=== PATIENT | male | born 1935 | race Caucasian/White ===

== ENCOUNTER 2018-03-12 13:43 | Observation (INO) ==
--- NOTE | 2018-03-12 14:00 | Emergency Department Note ---
Disposition Clinical Impression: New onset a-fib, Elevated TSH Disposition: Admitted As Inpatient Condition: Good Referrals: Chen Costello MD [Primary Care Provider] - Time of Disposition: 15:06 General Adult HPI - General Stated complaint: nausea Time Seen by Provider: 03/12/18 13:45 Source: patient, family (), EMS Mode of arrival: EMS Limitations: physical limitation Nursing Notes Reviewed: Yes Vital Signs Reviewed: Yes - History of Present Illness HPI Narrative: 82-year-old male history of dementia on Aricept presents emergency department via EMS for nausea. History was obtained through EMS and . Patient reportedly has been complaining of some dizziness blurred vision and headache and was seen and evaluated by primary care physician over the past week and had outpatient labs including MRI imaging of the brain performed today as an outpatient. This was performed approximately 2 hours prior to arrival. With the patient returned home he became very nauseated. He has been vomiting. He presents for that complaint. EMS performed EKG which showed that he is and atrial fibrillation. denies a history of cardiac ischemic disease, regular heart rhythm such as atrial fibrillation or congestive heart failure. Patient denies any chest pain or palpitations. Denies any dyspnea. At this time it is presumed to be new onset atrial fibrillation. denies any recent illnesses, cough congestion or diarrhea. He does not drink alcohol. Review of his laboratory results performed earlier today his TSH is elevated at 11. The MRI of his brain did not reveal any acute infarct. - Related Data Home Medications Medication Instructions Recorded Confirmed Donepezil HCl [Aricept] 5 mg PO HS 03/12/18 03/12/18 Allergies Allergy/AdvReac Type Severity Reaction Status Date / Time No Known Allergies Allergy Verified 03/12/18 14:06 All systems ED: reviewed and negative except as stated. Review of Systems: As Per HPI Constitutional: Denies: fever, chills ENT ED: Denies: congestion Cardiovascular: Denies: chest pain, palpitations Respiratory: Denies: cough, dyspnea Gastrointestinal: Reports: nausea, vomiting. Denies: abdominal pain, diarrhea Musculoskeletal: Denies: back pain Integumentary: Denies: rash, abrasion Neurological: Reports: headache. Denies: weakness, numbness Past Medical History - Past Medical History Attestation: Yes The following information was validated with the patient. Source: patient Medical history: Reports: no medical history Psychiatric history: Reports: no psych history - Social History Smoking Status: Never smoker Smokeless Tobacco Status: No Alcohol use: Reports: none Drug use: Reports: none Physical Exam - General Limitations: physical limitation (Dementia) General appearance: alert, other (Actively nauseated and vomiting) - Head Head exam: atraumatic, normocephalic, normal inspection - Eye Eye exam: Present: normal appearance, PERRL, EOMI - ENT ENT exam: normal exam, normal oropharynx, mucous membranes moist - Neck Neck exam: Present: normal inspection, full ROM, trachea midline - Chest Chest inspection: Present: normal inspection, symmetric chest wall rise - Respiratory Respiratory exam: Present: normal lung sounds bilaterally. Absent: respiratory distress, wheezes - Cardiovascular Cardiovascular exam: Present: tachycardia, irregular rhythm, normal heart sounds - Expanded Cardiovascular Exam Peripheral pulses: 2+: radial (R), radial (L) - Abdominal Exam Abdominal exam: Present: soft, Non-Tender, normal bowel sounds. Absent: tenderness, distention, guarding, rebound, rigidity - Extremities Exam Extremities exam: Present: normal inspection, full ROM, normal capillary refill. Absent: tenderness, pedal edema - Psychiatric Psychiatric exam: Present: normal affect, normal mood - Skin Skin exam: Present: warm, dry, intact, normal color. Absent: rash, cyanosis, diaphoresis Course Course Narrative: Patient presents nauseated and found to be of atrial fibrillation with rapid ventricular response. Currently his heart rate is 102. No recent illness or infection. He had outpatient labs that shows his TSH is elevated. I suspect he may have had underlying atrial fibrillation without knowing. Will add additional labs including coagulation in a troponin. Review of his electrolytes from earlier are within normal limits. Patient will require admission for further evaluation and workup for his new atrial fibrillation. - Reevaluation(s) Reevaluation #1: Troponin less than 0.03. INR is one. Patient will be admitted for atrial fibrillation. He has received Zofran which has relieved his nausea. IV fluids. His heart rate is now 70-80. - Consultations Consultation #1: Spoke with on-call hospitalist samra Puga to admit for new onset atrial fibrillation. No further orders at this time Time: 15:06 Vital Signs O2 Sat by Pulse Oximetry 91 03/12/18 14:08 Temperature 97.9 F 03/12/18 14:10 Pulse Rate 102 03/12/18 14:10 Respiratory Rate 20 03/12/18 14:10 Blood Pressure 162/96 03/12/18 14:10 O2 Sat by Pulse Oximetry 91 03/12/18 14:10 Oxygen Delivery Oxygen Delivery Room Air Medical Decision Making - MDM Narrative Medical decision making narrative: Patient was discussed with my attending physician who agrees with ED management and final disposition. They independently evaluated the patient. Please refer to their attestation to this encounter for additional information. This note was generated by [employer] voice recognition software and as a result grammatical or spelling errors may occur using this program. - Medical Records Medical records reviewed: Yes I reviewed the patient's medical records. - Lab Data Lab results reviewed: Yes I reviewed the patient's lab results. Lab results narrative: Laboratory Tests 03/12/18 03/12/18 09:58 09:58 WBC 5.1 Hgb 16.3 Sodium 136 Potassium 4.1 Chloride 99 Carbon Dioxide 31 H BUN 8 Creatinine 0.95 Est GFR ( Amer) > 60 Glucose 92 Total Bilirubin 0.7 AST 15 ALT 12 Alkaline Phosphatase 61 TSH 11.869 H Lab Results 03/12/18 03/12/18 Range/Units 14:09 14:09 PT 10.8 (9.4-12.1) Seconds INR 1.0 APTT 27.2 (26.0-36.0) Seconds Troponin I < 0.03 (< 0.04) ng/mL - Radiology Data Radiology results reviewed: Yes I reviewed the patient's radiology results. EXAMINATION: MRI OF THE BRAIN WITHOUT CONTRAST 03/12/2018 9:51 am TECHNIQUE: Multiplanar multisequence MRI of the brain was performed without the administration of intravenous contrast. COMPARISON: None. HISTORY: ORDERING SYSTEM PROVIDED HISTORY: DIZZINESS Dizziness, off balance, for a few months. FINDINGS: INTRACRANIAL STRUCTURES/VENTRICLES: There is no acute infarct. There is mild amount of nonspecific T2 hyperintense white matter lesions bilaterally, which are most often attributed to chronic small vessel ischemic white matter disease. Mild prominence of ventricles and sulci is compatible with cerebral volume loss. No abnormal susceptibility artifact is identified. No midline shift. No significant mass effect. Ventricles are dilated slightly out of proportion to the sulcal volume loss. ORBITS: The visualized portion of the orbits demonstrate no acute abnormality. SINUSES: Minimal bilateral mastoid effusions. There are small retention cysts within bilateral maxillary sinuses. BONES/SOFT TISSUES: There is a degenerative pannus formation at C1-C2 articulation. The marrow signal appears grossly unremarkable. MR/MR head/brain wo con IMPRESSION: No acute infarct, intracranial hemorrhage, or significant mass effect. Mild dilatation of the ventricles is slightly out of proportion to the sulcal volume loss. This may be secondary to predominantly central volume loss versus normal pressure hydrocephalus. 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 Minimal bilateral mastoid effusions are nonspecific. D/ / 03/12/2018 11:14:39 Christiano Reyes MD / [facility] Interpreting Provider: Christiano Reyes MD - EKG Data EKG #1 EKG attestation: Yes I reviewed and interpreted this EKG. EKG results narrative: EKG performed 1357 atrial fibrillation 102 beats per minute, atrial fibrillation , normal axis, good R wave progression, no ST elevation or depression, intervals within normal limits. There is no old EKG available for comparison at this time. Presumed new onset atrial fibrillation.
[2018-03-12] MEDS ORDERED: Ondansetron 4 MG/2 ML VIAL IVP ONE (14:05)
[2018-03-12] MEDS ORDERED: 0.9 % Sodium Chloride 1,000 ML IVC ONE (14:20)
[2018-03-12 14:32] LABS: Prothrombin Time 10.8 Seconds (9.4-12.1)
[2018-03-12 14:34] LABS: Activated Partial Thrombo Time 27.2 Seconds (26.0-36.0)
--- NOTE | 2018-03-12 14:34 | Emergency Department Note ---
Disposition Clinical Impression: New onset a-fib Disposition: Admitted As Inpatient Referrals: Chen Costello MD [Primary Care Provider] - General Adult HPI - General Chief complaint: ED Arrhythmia/Palpitations Stated complaint: nausea/new onset afib Time Seen by Provider: 03/12/18 13:45 Source: patient, family (), EMS Mode of arrival: EMS Limitations: physical limitation (Dementia) - History of Present Illness Pain Scale: 0 - Related Data Home Medications Medication Instructions Recorded Confirmed Donepezil HCl [Aricept] 5 mg PO HS 03/12/18 03/12/18 Allergies Allergy/AdvReac Type Severity Reaction Status Date / Time No Known Allergies Allergy Verified 03/12/18 14:06 Constitutional: Denies: fever, chills ENT ED: Denies: congestion Cardiovascular: Denies: chest pain, palpitations Respiratory: Denies: cough, dyspnea Gastrointestinal: Reports: nausea, vomiting. Denies: abdominal pain, diarrhea Musculoskeletal: Denies: back pain Integumentary: Denies: rash, abrasion Neurological: Reports: headache. Denies: weakness, numbness Past Medical History - Past Medical History Medical history: Reports: no medical history Psychiatric history: Reports: no psych history - Social History Smoking Status: Never smoker Smokeless Tobacco Status: No Alcohol use: Reports: none Drug use: Reports: none Physical Exam - General Limitations: physical limitation (Dementia) General appearance: alert, other (Actively nauseated and vomiting) Course Vital Signs O2 Sat by Pulse Oximetry 91 03/12/18 14:08 Temperature 97.9 F 03/12/18 14:10 Pulse Rate 102 03/12/18 14:10 Respiratory Rate 20 03/12/18 14:10 Blood Pressure 162/96 03/12/18 14:10 O2 Sat by Pulse Oximetry 91 03/12/18 14:10 Oxygen Delivery Oxygen Delivery Room Air Attestation Statement - Attestation Attestation: I examined this patient and my medical decision-making was reviewed with the Resident Physician. I agree with the documented findings, disposition and treatment plan as described except to the extent set forth below. 82 year old male with history of dementia and has been experincing icnreased dementia sypmtoms with blurriness to hsi vision most recently had labs and MRi of the brain done to day for evlaution per his PCP. MRI shows mild diltation possible normal pressure hydocephalus although he is at baseline per family. PAtient went home after the MRI and started to feel extreme nausea and when EMS arrived he was fond to be in AFIB rvr with rate of 114. Now at bedside he is 95 , but still in afib. Juwan has a no previous history of afib. We will not treat with anti-arrhtyhmics at this time as it is unsure how long he has been in afib in addition to his rate is now controlled at 95. WE will admit to medicine for new onset afib
[2018-03-12 14:48] LABS: Troponin I < 0.03 ng/mL (< 0.04)
[2018-03-12] MEDS ORDERED: *HR* Metoprolol 5 MG/5 ML VIAL IVP ONE (15:04)
[2018-03-12] MEDS ORDERED: Naloxone 0.4 MG/ML INJ IVP PRN (15:05)
[2018-03-12 15:19] LABS: Bilirubin,Urine Negative (Negative); Blood,Urine Negative (Negative); Clarity,Urine Clear (Clear); Color,Urine Yellow (Yellow); Glucose,Urine (UA) Normal (Normal); Ketones,Urine Trace mg/dL (Negative); Leukocyte Esterase,Urine Negative (Negative); Nitrite,Urine Negative (Negative); PH,Urine 7.5 pH Units (5.0-8.0); Protein,Urine Negative (Neg-Trace); Specific Gravity,Urine 1.014 (1.010-1.025); Urobilinogen,Urine Normal (Normal)
--- NOTE | 2018-03-12 16:02 | Internal Med History&Physical ---
Date of Encounter: 03/12/18 Time of Encounter: 16:02 Internal Medicine - H&P: HPI Chief complaint: Nausea and vomiting, dizziness Admitted From: Home Plans for Post Hospital Care: Home History of present illness: Mr. Berman is a 82 year old male with medical history significant for dementia. The patient was seen and evaluated with his spouse and son at the bedside. His primary care physician sent him to the hospital for a routine MRI and abdominal following worsening of his baseline dementia. On getting home after his blood draws, the patient complained of nausea, and dizziness. Family brought him by squad found him to be in A. fib with ventricular rate in the 160s. In the ER here, he was found with A. fib heart rate [address] segment changes. And his symptoms had resolved at the time of presentation. The patient's family denies any prior history of heart disease, he denies chest pain, he still continues to complain of dizziness, but he has no had any meal today due to fasting for his blood work. He denies diaphoresis, he denies shortness of breath, he denies leg edema. He is hemodynamically stable at the time of review. He denies nausea or vomiting, no abdominal pain, no change in bowel habits. He denies genitourinary symptoms. The patient converted to sinus rhythm with IV fluid hydration only. Workup requested by his physician was unremarkable, urine analysis is pending, his TSH is elevated at 11.8. His brain MRI showed ventricular dilatation likely due to age, the patient has no signs or symptoms of normal pressure hydrocephalus. The patient is full code and the family is interested in anticoagulation for his A. fib. We will place the patient on observation He is full code. Past Med Surg Social Fam HX - Past Medical History Medical history: no medical history Psychiatric history: no psych history - Social History Smoking Status: Never smoker Smokeless Tobacco Status: No Alcohol use: none Drug use: none Internal Medicine - H&P: Meds Donepezil HCl [Aricept] 5 mg PO HS 03/12/18 [History] 3 Allergy/AdvReac Type Severity Reaction Status Date / Time No Known Allergies Allergy Verified 03/12/18 14:06 All Systems PM: A 10-system review of systems was performed and is negative for pertinent findings except as documented above in the HPI. - Constitutional Constitutional: no chills, no fever(s), no night sweats - EENT Eyes: no change in vision, no discharge, no pain, no photophobia Ears: no ear discharge, no ear pain, no tinnitus Nose, mouth and throat: no dysphagia, no nasal discharge, no neck pain, no sore throat - Cardiovascular Cardiovascular ROS IM: as per HPI, lightheadedness, no chest pain, no diaphoresis, no dyspnea, no palpitations, no syncope - Respiratory Respiratory: no cough, no dyspnea, no wheezing, no excessive phlegm production - Gastrointestinal Gastrointestinal: nausea, no abdominal pain, no diarrhea, no hematemesis, no hematochezia, no melena, no vomiting - Musculoskeletal Musculoskeletal ROS IM: no numbness, no tingling - Integumentary Integumentary IM: no rash, no unusual bruising - Neurological Neurological ROS: no confusion, no convulsions, no focal weakness, no numbness, no tingling, no tremor(s) - Hematologic/Lymphatic Hematologic/Lymphatic: no easy bruising - Constitutional Vitals: Temp Pulse Resp BP Pulse Ox 97.9 F 83 20 142/83 95 03/12/18 14:10 03/12/18 15:30 03/12/18 15:30 03/12/18 15:30 03/12/18 15:30 Exam: see detailed exam below - Head Head exam: Present: atraumatic, normocephalic - Eye Eye exam: Present: PERRL, conjuntiva pink, sclera anicteric Pupils: Present: PERRL - Neck Neck exam general surgery: Present: supple, trachea midline. Absent: lymphadenopathy - Respiratory Respiratory exam: Present: CTAB. Absent: accessory muscle use, rales, rhonchi, wheezes - Cardiovascular Cardiovascular exam: Present: RRR, +S1, +S2. Absent: diastolic murmur, gallop, rubs, systolic murmur - GI/Abdominal GI/Abdominal exam: Present: normal bowel sounds, soft, no peritoneal signs. Absent: distended, tenderness - Extremities Exam Extremities exam: Present: warm, radial pulses palpable and symmetrical. Absent : calf tenderness, cyanotic, pedal edema - Neurological Exam Neurological exam: Present: CN II-XII intact, oriented X3, no focal deficits. Absent: pronater drift, facial droop, speech deficit - Skin Skin exam: Present: dry, intact Internal Med - H&P Results - Labs CBC & Chem 7: 03/12/18 14:09 Labs: BMP 03/12/18 14:09 Sodium Cancelled Potassium Cancelled Chloride Cancelled Carbon Dioxide Cancelled BUN Cancelled Creatinine Cancelled Glucose Cancelled Calcium Cancelled Cardiac Enzymes 03/12/18 Range/Units 14:09 Troponin I < 0.03 (< 0.04) ng/mL Urine 03/12/18 Range/Units 15:11 Urine Color Yellow (Yellow) Urine Clarity Clear (Clear) Urine pH 7.5 (5.0-8.0) pH Units Ur Specific [place] 1.014 (1.010-1.025) Urine Protein Negative (Neg-Trace) mg/dL Urine Glucose (UA) Normal (Normal) mg/dL - Impressions ITS Impressions Chest X-Ray 03/12/18 13:55 IMPRESSION: Elevated left hemidiaphragm. Cardiomegaly. Otherwise, no acute abnormalities seen in the chest D/ / Basim Doherty MD / Basim Doheryt MD Interpreting Provider: Basim Doherty MD - Assessment and plan (1) New onset a-fib Current Visit: Yes Status: Acute Assessment and plan: Paroxysmal, currently asymptomatic and hemodynamically stable. [place] started on metoprolol 12.5 mg by mouth twice a day [id number] score is 2 for age greater than 75 years old Family at least on anticoagulation, we will start on xarelto today, hospitalist to confirm pricing prior to discharge Check Mag Other electrolytes WNL ECHO ordered (2) Dementia Current Visit: Yes Status: Chronic Assessment and plan: Continue home medication Qualifiers: Dementia type: Alzheimer's disease Alzheimer's disease onset: unspecified onset Dementia behavioral disturbance: without behavioral disturbance Qualified Code(s): G30.9 - Alzheimer's disease, unspecified; F02.80 - Dementia in other diseases classified elsewhere without behavioral disturbance (3) Elevated TSH Current Visit: Yes Status: Acute Assessment and plan: TSH level in the setting of dementia and new onset A. fib. Patient has an appointment with his PCP this coming week, we will defer resumption of Synthroid to PCP. - Time Spent With Patient Total time spent is greater than 50% in coordination of care (as documented) at patient's floor/unit and/or counseling patient:
[2018-03-12 16:05] LABS: Magnesium 2.1 mg/dL (1.6-2.6)
[2018-03-12] MEDS: *HR* Rivaroxaban 10 MG TABLET PO SCH (18:02)
[2018-03-13 07:38] LABS: Basophils % 0.3 %; Eosinophils # 0.1 K/mcL (0.0-0.6); Eosinophils % 1.2 %; Hematocrit 47.2 % (37.5-50.1); Hemoglobin 15.8 g/dL (12.9-16.9); Immature Granulocytes % 0.3 % (0-4); Lymphocytes # 1.3 K/mcL (0.6-4.6); Mean Corpuscular HGB Conc 33.5 g/dL (31.6-35.5); Mean Corpuscular Volume 92.5 fL (83.0-100.0); Monocytes # 0.5 K/mcL (0.0-1.3); Monocytes % 8.2 %; Neutrophils # 3.9 K/mcL (1.6-8.9); Platelet Count 144 K/mcL (140-400); Red Cell Distribution Width 13.1 % (11.5-14.5)
[2018-03-13 07:47] LABS: BUN/Creatinine Ratio 11 (6-26); Blood Urea Nitrogen 10 mg/dL (8-23); Calcium 9.2 mg/dL (8.6-10.3); Carbon Dioxide 28 mEq/L (23-29); Chloride 101 mEq/L (98-107); Glucose 111 mg/dL (70-105); Magnesium 2.2 mg/dL (1.6-2.6); Osmolality,Calculated 280 (280-300); Potassium 4.1 mEq/L (3.5-5.1); Sodium 135 mEq/L (136-145); eGFR For Non-African Americans > 60 (> 60)
[2018-03-13 10:47] VITALS: BP 135/87
--- NOTE | 2018-03-13 13:46 | Discharge Summary ---
- NOTES TO OUTPATIENT PROVIDER Notes to Outpatient Provider: Paroxysmal a.fib, started on low dose beta veena and Xarelto Date of Encounter: 03/13/18 Time of Encounter: 13:43 - Discharge Diagnosis (1) New onset a-fib Priority: Primary Status: Acute (2) Elevated TSH Priority: Primary Status: Chronic (3) Dementia Priority: Secondary Status: Chronic Qualifiers: Dementia type: Alzheimer's disease Alzheimer's disease onset: late-onset Dementia behavioral disturbance: with behavioral disturbance Qualified Code(s) : G30.1 - Alzheimer's disease with late onset; F02.81 - Dementia in other diseases classified elsewhere with behavioral disturbance Hospital course: Mr. Berman is a 82 year old male with no significant medical history except Alzheimer's dementia, was brought in by family due to nausea and dizziness. He was noted to have atrial fibrillation with RVR in the ER that converted to sinus rhythm with IV hydration. He was since started on low dose beta veena and anticoagulation with Xarelto after discussing risks and benefits with family by admitting physician due to [id number] score of 2. TSH ordered by PCP showed mild elevation at 8, to f/up as outpatient for further thyroid panel testing and Levothyroxine if symptomatic. Patient remained in sinus rhythm since admission with good rate control. Echocardiogram showed preserved EF, mild diastolic dysfunction. Patient was noted to become more delirious and disoriented towards afternoon, and began to become agitated and threatening to leave and go home. He is medically stable; I have discussed with family along with RN, regarding Xarelto parker check and they are agreeable to take patient home. Discharge discussed with: patient, family, nurse - Time Spent with Patient Total time spent providing and/or coordinating discharge services: Greater than 30 minutes (40 min) - Discharge Medications Prescriptions: Metoprolol [Lopressor] 12.5 mg PO BID #30 tablet Rivaroxaban [Xarelto] 20 mg PO 1700 #60 tablet Home Medications: Donepezil HCl [Aricept] 5 mg PO HS 03/12/18 [History] Metoprolol [Lopressor] 12.5 mg PO BID #30 tablet 03/13/18 [Rx] Rivaroxaban [Xarelto] 20 mg PO 1700 #60 tablet 03/13/18 [Rx] Allergies/Adverse Reactions: 3 Allergy/AdvReac Type Severity Reaction Status Date / Time No Known Allergies Allergy Verified 03/12/18 14:06 Date of admission: 03/12/18 16:13 Primary care physician: Chen Costello MD Discharging clinician: Yolanda Chavarria Anticipated date of discharge: 03/13/18 - Constitutional Vitals: Temp Pulse Resp BP Pulse Ox 97.8 F 72 18 135/87 97 03/13/18 10:46 03/13/18 10:46 03/13/18 10:46 03/13/18 10:46 03/13/18 10:46 General appearance: Present: A&O X 1. Absent: answers questions appropriately Exam: . - Cardiovascular Cardiovascular exam: Present: RRR, +S1, +S2. Absent: diastolic murmur, gallop, rubs, systolic murmur - Patient Status Disposition: Home, Self-Care Condition: Fair Functional capacity at discharge: independent ambulation Overall status at discharge: patient is progressing back to baseline - Discharge Instructions Instructions: Atrial Fibrillation (DC) Follow Up With: Chen Costello MD [Primary Care Provider] - Forms: ED Satisfaction Letter Additional Instructions: F/up with PCP in 1-2 weeks - Diet and Activity Activity: resume usual activities as tolerated Diet: advance to your usual diet, regular diet
[2018-03-13] MEDS: *HR* Rivaroxaban 10 MG TABLET PO SCH (14:32)
--- NOTE | 2018-03-16 16:47 | Electrocardiograph Report ---
[place] [id number] Test Date: 2018-03-12 Pat Name: Nikhil Berman Department: [id number] Room: 2NE16 Gender: M Packer Fuser: : [id number] Requested By: Chente Apple Order Number: [id number] Reading MD: Mendel Woo Measurements Intervals [place] Rate: 102 P: NH: QRS: 28 QRSD: 90 T: -32 QT: 364 QTc: 475 Interpretive Statements Atrial fibrillation Ventricular premature complex Borderline T abnormalities, inferior leads Electronically Signed On 03-16-2018 16:45:53 EDT by Mendel Woo
== END 2018-03-13 14:36 | disposition home or self-care (01) ==
LOC: 2NENU 13:43 → EMEROOARM 13:43 → SUATTDRO 16:13 → 2NENU 17:03
PROVIDERS: ADMIT Internal Medicine; ATTEND Internal Medicine

== ENCOUNTER 2018-06-01 14:24 | Observation (INO) ==
--- NOTE | 2018-06-01 14:35 | Emergency Department Note ---
Disposition Clinical Impression: Near syncope, Slurred speech, TIA (transient ischemic attack) Dementia Qualifiers: Dementia type: unspecified type Dementia behavioral disturbance: without behavioral disturbance Qualified Code(s): F03.90 - Unspecified dementia without behavioral disturbance Disposition: Admitted As Inpatient Condition: Fair General Adult HPI - General Chief complaint: ED Neuro Symptoms/Deficit Stated complaint: possible stroke/ ill Time Seen by Provider: 06/01/18 14:28 Source: patient, EMS Nursing Notes Reviewed: Yes Vital Signs Reviewed: Yes - History of Present Illness HPI Narrative: 82-year-old male presents emergency department with concern for having a presyncopal episode. Patient was using the bathroom, when his noticed that he was having slurring of his speech and almost passed out. Patient did not hit his head. He did not have any chest pain or palpitations at this incident. Patient was brought in by EMS. Stated that he had no neurologic symptoms at the time that they saw him and did not develop any on the squad right over. Patient was recently diagnosed with atrial fibrillation and had a recent hospitaliza tion. He was taking blood thinning medications, but reported that he weakness with them. He is currently only taken 325 mg aspirin daily for his atrial fibrillation. Pain Scale: 0 - Related Data Home Medications Medication Instructions Recorded Confirmed Donepezil HCl [Aricept] 5 mg PO HS 03/12/18 03/12/18 Levothyroxine [Synthroid] 25 mcg PO 0630 03/14/18 03/14/18 Previous Rx's Medication Instructions Recorded Metoprolol [Lopressor] 12.5 mg PO BID #30 tablet 03/13/18 Warfarin [Coumadin] 2.5 mg PO 1800 #30 tablet 03/14/18 Allergies Allergy/AdvReac Type Severity Reaction Status Date / Time No Known Allergies Allergy Verified 03/12/18 14:06 All systems ED: reviewed and negative except as stated. Review of Systems: As Per HPI Constitutional: Denies: fever Cardiovascular: Reports: other (Near syncope). Denies: chest pain, palpitations Respiratory: Denies: cough, dyspnea Gastrointestinal: Denies: abdominal pain, nausea, vomiting Genitourinary: Denies: urgency, dysuria, frequency Musculoskeletal: Denies: back pain, neck pain Endocrine: Denies: fatigue Hematological/Lymphatic: Denies: easy bleeding Past Medical History - Past Medical History Medical history: Reports: dementia Surgical history: Reports: no surgical history Psychiatric history: Reports: no psych history - Social History Smoking Status: Never smoker Smokeless Tobacco Status: No Alcohol use: Reports: none Drug use: Reports: none Physical Exam - General Limitations: no limitations General appearance: alert - Head Head exam: normocephalic - Eye Eye exam: Present: EOMI - ENT ENT exam: mucous membranes moist - Neck Neck exam: Present: trachea midline - Chest Chest inspection: Present: symmetric chest wall rise - Respiratory Respiratory exam: Present: normal lung sounds bilaterally. Absent: respiratory distress, accessory muscle use - Cardiovascular Cardiovascular exam: Present: regular rate, normal rhythm, normal heart sounds - Abdominal Exam Abdominal exam: Present: soft, Non-Tender. Absent: distention, guarding, rebound, rigidity - Extremities Exam Extremities exam: Present: normal capillary refill - Back Exam Back exam: Present: full ROM - Neurological Exam Neurological exam: Present: alert, oriented X3, CN II-XII intact, other (NIH of 0, GCS 15, no focal neurologic deficits) - Psychiatric Psychiatric exam: Present: normal affect, normal mood - Skin Skin exam: Present: warm, dry, intact, normal color. Absent: rash Course Vital Signs Temperature 98.2 F 06/01/18 14:27 Pulse Rate 62 06/01/18 14:27 Respiratory Rate 16 06/01/18 14:27 Blood Pressure 166/81 06/01/18 14:27 O2 Sat by Pulse Oximetry 95 06/01/18 14:27 Temperature 98.2 F 06/01/18 14:34 Pulse Rate 89 06/01/18 18:11 Respiratory Rate 16 06/01/18 18:11 Blood Pressure 142/79 06/01/18 18:11 O2 Sat by Pulse Oximetry 96 06/01/18 18:11 Oxygen Delivery Oxygen Delivery Room Air Medical Decision Making - [facility] Narrative Medical decision making narrative: 82-year-old male presents emergency Department concern for a near syncopal episode today with history recently diagnosed atrophic relation with RVR and not currently being on blood thinning medications. Patient had NIH of 0 at initial presentation. He had a GCS of 15. We did obtain CT scan of the head as well as CTA of the head and neck and there is no acute abnormality per radiology. Was concern for the possibility of ventriculomegaly, but patient had no clinical signs of normal pressure hydrocephalus. Chest x-ray, on the other hand, revealed cardiomegaly and vascular congestion per radiology. Troponin was negative. EKG did not reveal any ischemic ST changes. Also, there was no evidence of deadly causes of syncope. Patient was in sinus rhythm. Patient was offered admission due to high risk for adverse events including but not limiting deadly arrhythmia, stroke. He agreed to be admitted. Patient was admitted to Dr. Mccoy. He was stable and not in acute distress at that time. Patient had already received 325 mg aspirin prior to arrival as he takes this daily. Chest X-Ray 06/01/18 14:30 IMPRESSION: 1. Cardiomegaly with mild vascular congestion. D/ / Bert Rapp MD / Bert Rapp MD Interpreting Provider: Bert Rapp MD Head CT 06/01/18 14:31 IMPRESSION: 1. No acute intracranial abnormality. 2. Ventriculomegaly, likely related to involutional change, however, normal pressure hydrocephalus cannot be excluded. D/ / 06/01/2018 15:07:36 Beny Casper MD / unruly Interpreting Provider: Beny Casper MD Head CTA 06/01/18 16:03 IMPRESSION: No intracranial arterial abnormality. D/ / Chente Fraire / Chente Fraire Interpreting Provider: Chente Fraire Neck CTA 06/01/18 16:03 IMPRESSION: 1.Unremarkable CTA of the neck. D/ / Bert Rapp MD / Bert Rapp MD Interpreting Provider: Bert Rapp MD Vital Signs Temperature 98.2 F 06/01/18 14:27 Pulse Rate 62 06/01/18 14:27 Respiratory Rate 16 06/01/18 14:27 Blood Pressure 166/81 06/01/18 14:27 O2 Sat by Pulse Oximetry 95 06/01/18 14:27 Temperature 98.0 F 06/01/18 20:12 Pulse Rate 83 06/01/18 20:12 Respiratory Rate 14 06/01/18 20:12 Blood Pressure 144/76 06/01/18 20:12 O2 Sat by Pulse Oximetry 94 06/01/18 20:12 Oxygen Delivery Oxygen Delivery Room Air - Lab Data Result diagrams: 06/01/18 14:36 06/01/18 14:36 Lab Results 06/01/18 06/01/18 06/01/18 Range/Units 14:26 14:36 14:36 WBC 5.8 (4.3-11.1) K/mcL RBC 4.74 (4.19-5.50) M/mcL Hgb 14.6 (12.9-16.9) g/dL Hct 44.3 (37.5-50.1) % MCV 93.5 (83.0-100.0) fL MCH 30.8 (28.0-33.3) pg MCHC 33.0 (31.6-35.5) g/dL RDW 12.8 (11.5-14.5) % Plt Count 149 (140-400) K/mcL MPV 9.5 (9.4-12.4) fL Immature Gran % 0.7 (0-4) % Seg Neutrophils % 67.4 % Lymphocytes % 21.1 % Monocytes % 8.2 % Eosinophils % 1.9 % Basophils % 0.7 % Neutrophils # 3.9 (1.6-8.9) K/mcL Lymphocytes # 1.2 (0.6-4.6) K/mcL Monocytes # 0.5 (0.0-1.3) K/mcL Eosinophils # 0.1 (0.0-0.6) K/mcL Basophils # 0.0 (0.0-0.2) K/mcL PT 11.0 (9.4-12.1) Seconds INR 1.0 APTT 23.7 L (26.0-36.0) Seconds Sodium (136-145) mEq/L Potassium (3.5-5.1) mEq/L Chloride (98-107) mEq/L Carbon Dioxide (23-29) mEq/L BUN (8-23) mg/dL Creatinine (0.70-1.30) mg/dL Est GFR ( Amer) (> 60) Est GFR (Non-Af Amer) (> 60) BUN/Creatinine Ratio (6-26) Glucose (70-105) mg/dL POC Glucose 97 (70-99) mg/dL Calculated Osmolality (280-300) Calcium (8.6-10.3) mg/dL Total Bilirubin (0.3-1.0) mg/dL Direct Bilirubin (0.0-0.2) mg/dL Indirect Bilirubin (0.0-1.2) mg/dL AST (13-39) Units/L ALT (7-52) Units/L Alkaline Phosphatase (34-104) Units/L Troponin I (< 0.04) ng/mL B-Natriuretic Peptide (Less than 100) pg/mL Serum Total Protein (6.4-8.9) g/dL Albumin (3.5-5.7) g/dL Globulin (2.4-3.5) g/dL Albumin/Globulin Ratio (1.1-2.2) TSH (0.340-5.600) mcIU/mL Urine Color (Yellow) Urine Clarity (Clear) Urine pH (5.0-8.0) pH Units Ur Specific [place] (1.010-1.025) Urine Protein (Neg-Trace) mg/dL Urine Glucose (UA) (Normal) mg/dL Urine Ketones (Negative) mg/dL Urine Blood (Negative) Urine Nitrite (Negative) Urine Bilirubin (Negative) Urine Urobilinogen (Normal) mg/dL Ur Leukocyte Esterase (Negative) Ur Culture Indicated? (NO) 06/01/18 06/01/18 06/01/18 Range/Units 14:36 14:45 15:42 WBC (4.3-11.1) K/mcL RBC (4.19-5.50) M/mcL Hgb (12.9-16.9) g/dL Hct (37.5-50.1) % MCV (83.0-100.0) fL MCH (28.0-33.3) pg MCHC (31.6-35.5) g/dL RDW (11.5-14.5) % Plt Count (140-400) K/mcL MPV (9.4-12.4) fL Immature Gran % (0-4) % Seg Neutrophils % % Lymphocytes % % Monocytes % % Eosinophils % % Basophils % % Neutrophils # (1.6-8.9) K/mcL Lymphocytes # (0.6-4.6) K/mcL Monocytes # (0.0-1.3) K/mcL Eosinophils # (0.0-0.6) K/mcL Basophils # (0.0-0.2) K/mcL PT (9.4-12.1) Seconds INR APTT (26.0-36.0) Seconds Sodium 140 (136-145) mEq/L Potassium 3.9 (3.5-5.1) mEq/L Chloride 103 (98-107) mEq/L Carbon Dioxide 30 H (23-29) mEq/L BUN 18 (8-23) mg/dL Creatinine 0.94 (0.70-1.30) mg/dL Est GFR ( Amer) > 60 (> 60) Est GFR (Non-Af Amer) > 60 (> 60) BUN/Creatinine Ratio 19 (6-26) Glucose 107 H (70-105) mg/dL POC Glucose (70-99) mg/dL Calculated Osmolality 292 (280-300) Calcium 8.4 L (8.6-10.3) mg/dL Total Bilirubin 0.3 (0.3-1.0) mg/dL Direct Bilirubin 0.1 (0.0-0.2) mg/dL Indirect Bilirubin 0.2 (0.0-1.2) mg/dL AST 14 (13-39) Units/L ALT 11 (7-52) Units/L Alkaline Phosphatase 58 (34-104) Units/L Troponin I < 0.03 (< 0.04) ng/mL B-Natriuretic Peptide 103 H (Less than 100) pg/mL Serum Total Protein 6.2 L (6.4-8.9) g/dL Albumin 4.0 (3.5-5.7) g/dL Globulin 2.2 L (2.4-3.5) g/dL Albumin/Globulin Ratio 1.8 (1.1-2.2) TSH 14.150 H (0.340-5.600) mcIU/mL Urine Color Yellow (Yellow) Urine Clarity Clear (Clear) Urine pH 7.0 (5.0-8.0) pH Units Ur Specific [place] 1.012 (1.010-1.025) Urine Protein Negative (Neg-Trace) mg/dL Urine Glucose (UA) Normal (Normal) mg/dL Urine Ketones Negative (Negative) mg/dL Urine Blood Negative (Negative) Urine Nitrite Negative (Negative) Urine Bilirubin Negative (Negative) Urine Urobilinogen Normal (Normal) mg/dL Ur Leukocyte Esterase Negative (Negative) Ur Culture Indicated? NO (NO) - EKG Data EKG #1 EKG attestation: Yes I reviewed and interpreted this EKG. EKG results narrative: 14:32 Heart rate 62 bpm, CA interval 154 ms, QRS duration 101 ms, QT 437 ms, normal axis. Sinus rhythm ventricular rate of 62 beats for minute. No evidence of any ischemic ST changes. Attestation Statement - Attestation Attestation: I, Madi Stein DO, examined this patient [id number] and my medical decision-making was reviewed with Dr. Filippo Loo, Resident Physician. I agree with the documented findings, disposition and treatment plan as described except to the extent set forth below. Please see my progress notes for details.
[2018-06-01 15:04] LABS: Basophils % 0.7 %; Eosinophils # 0.1 K/mcL (0.0-0.6); Eosinophils % 1.9 %; Hematocrit 44.3 % (37.5-50.1); Hemoglobin 14.6 g/dL (12.9-16.9); Immature Granulocytes % 0.7 % (0-4); Lymphocytes # 1.2 K/mcL (0.6-4.6); Lymphocytes % 21.1 %; Mean Corpuscular Hemoglobin 30.8 pg (28.0-33.3); Mean Corpuscular Volume 93.5 fL (83.0-100.0); Mean Platelet Volume 9.5 fL (9.4-12.4); Monocytes # 0.5 K/mcL (0.0-1.3); Monocytes % 8.2 %; Neutrophils # 3.9 K/mcL (1.6-8.9); Platelet Count 149 K/mcL (140-400); Red Blood Count 4.74 M/mcL (4.19-5.50); Red Cell Distribution Width 12.8 % (11.5-14.5); Segmented Neutrophils % 67.4 %
[2018-06-01 15:18] LABS: Activated Partial Thrombo Time 23.7 Seconds (26.0-36.0)
[2018-06-01 15:26] LABS: Alanine Aminotransferase 11 Units/L (7-52); Albumin/Globulin Ratio 1.8 (1.1-2.2); Alkaline Phosphatase 58 Units/L (34-104); Aspartate Amino Transferase 14 Units/L (13-39); BUN/Creatinine Ratio 19 (6-26); Bilirubin,Direct 0.1 mg/dL (0.0-0.2); Bilirubin,Indirect 0.2 mg/dL (0.0-1.2); Bilirubin,Total 0.3 mg/dL (0.3-1.0); Blood Urea Nitrogen 18 mg/dL (8-23); Calcium 8.4 mg/dL (8.6-10.3); Carbon Dioxide 30 mEq/L (23-29); Chloride 103 mEq/L (98-107); Globulin 2.2 g/dL (2.4-3.5); Glucose 107 mg/dL (70-105); Osmolality,Calculated 292 (280-300); Potassium 3.9 mEq/L (3.5-5.1); Sodium 140 mEq/L (136-145); Total Protein 6.2 g/dL (6.4-8.9); Troponin I < 0.03 ng/mL (< 0.04); eGFR For Non-African Americans > 60 (> 60)
--- NOTE | 2018-06-01 15:33 | Emergency Department Note ---
Disposition Clinical Impression: Dementia, Near syncope, Slurred speech, TIA (transient ischemic attack) Disposition: Admitted As Inpatient Condition: Fair Time of Disposition: 18:24 General Adult HPI - General Chief complaint: ED Neuro Symptoms/Deficit Stated complaint: possible stroke/ ill Time Seen by Provider: 06/01/18 14:28 Source: patient, EMS - History of Present Illness Pain Scale: 0 - Related Data Home Medications Medication Instructions Recorded Confirmed Donepezil HCl [Aricept] 5 mg PO HS 03/12/18 03/12/18 Levothyroxine [Synthroid] 25 mcg PO 0630 03/14/18 03/14/18 Previous Rx's Medication Instructions Recorded Metoprolol [Lopressor] 12.5 mg PO BID #30 tablet 03/13/18 Warfarin [Coumadin] 2.5 mg PO 1800 #30 tablet 03/14/18 Allergies Allergy/AdvReac Type Severity Reaction Status Date / Time No Known Allergies Allergy Verified 03/12/18 14:06 Past Medical History - Past Medical History Medical history: Reports: dementia Surgical history: Reports: no surgical history Psychiatric history: Reports: no psych history - Social History Smoking Status: Never smoker Smokeless Tobacco Status: No Alcohol use: Reports: none Drug use: Reports: none Physical Exam - General General appearance: alert Course Vital Signs Temperature 98.2 F 06/01/18 14:27 Pulse Rate 62 06/01/18 14:27 Respiratory Rate 16 06/01/18 14:27 Blood Pressure 166/81 06/01/18 14:27 O2 Sat by Pulse Oximetry 95 06/01/18 14:27 Temperature 98.2 F 06/01/18 14:34 Pulse Rate 89 06/01/18 18:11 Respiratory Rate 16 06/01/18 18:11 Blood Pressure 142/79 06/01/18 18:11 O2 Sat by Pulse Oximetry 96 06/01/18 18:11 Oxygen Delivery Oxygen Delivery Room Air Medical Decision Making - Lab Data Result diagrams: 06/01/18 14:36 06/01/18 14:36 Lab Results 06/01/18 06/01/18 06/01/18 Range/Units 14:26 14:36 14:36 WBC 5.8 (4.3-11.1) K/mcL RBC 4.74 (4.19-5.50) M/mcL Hgb 14.6 (12.9-16.9) g/dL Hct 44.3 (37.5-50.1) % MCV 93.5 (83.0-100.0) fL MCH 30.8 (28.0-33.3) pg MCHC 33.0 (31.6-35.5) g/dL RDW 12.8 (11.5-14.5) % Plt Count 149 (140-400) K/mcL MPV 9.5 (9.4-12.4) fL Immature Gran % 0.7 (0-4) % Seg Neutrophils % 67.4 % Lymphocytes % 21.1 % Monocytes % 8.2 % Eosinophils % 1.9 % Basophils % 0.7 % Neutrophils # 3.9 (1.6-8.9) K/mcL Lymphocytes # 1.2 (0.6-4.6) K/mcL Monocytes # 0.5 (0.0-1.3) K/mcL Eosinophils # 0.1 (0.0-0.6) K/mcL Basophils # 0.0 (0.0-0.2) K/mcL PT 11.0 (9.4-12.1) Seconds INR 1.0 APTT 23.7 L (26.0-36.0) Seconds Sodium (136-145) mEq/L Potassium (3.5-5.1) mEq/L Chloride (98-107) mEq/L Carbon Dioxide (23-29) mEq/L BUN (8-23) mg/dL Creatinine (0.70-1.30) mg/dL Est GFR ( Amer) (> 60) Est GFR (Non-Af Amer) (> 60) BUN/Creatinine Ratio (6-26) Glucose (70-105) mg/dL POC Glucose 97 (70-99) mg/dL Calculated Osmolality (280-300) Calcium (8.6-10.3) mg/dL Total Bilirubin (0.3-1.0) mg/dL Direct Bilirubin (0.0-0.2) mg/dL Indirect Bilirubin (0.0-1.2) mg/dL AST (13-39) Units/L ALT (7-52) Units/L Alkaline Phosphatase (34-104) Units/L Troponin I (< 0.04) ng/mL B-Natriuretic Peptide (Less than 100) pg/mL Serum Total Protein (6.4-8.9) g/dL Albumin (3.5-5.7) g/dL Globulin (2.4-3.5) g/dL Albumin/Globulin Ratio (1.1-2.2) TSH (0.340-5.600) mcIU/mL Urine Color (Yellow) Urine Clarity (Clear) Urine pH (5.0-8.0) pH Units Ur Specific [place] (1.010-1.025) Urine Protein (Neg-Trace) mg/dL Urine Glucose (UA) (Normal) mg/dL Urine Ketones (Negative) mg/dL Urine Blood (Negative) Urine Nitrite (Negative) Urine Bilirubin (Negative) Urine Urobilinogen (Normal) mg/dL Ur Leukocyte Esterase (Negative) Ur Culture Indicated? (NO) 06/01/18 06/01/18 06/01/18 Range/Units 14:36 14:45 15:42 WBC (4.3-11.1) K/mcL RBC (4.19-5.50) M/mcL Hgb (12.9-16.9) g/dL Hct (37.5-50.1) % MCV (83.0-100.0) fL MCH (28.0-33.3) pg MCHC (31.6-35.5) g/dL RDW (11.5-14.5) % Plt Count (140-400) K/mcL MPV (9.4-12.4) fL Immature Gran % (0-4) % Seg Neutrophils % % Lymphocytes % % Monocytes % % Eosinophils % % Basophils % % Neutrophils # (1.6-8.9) K/mcL Lymphocytes # (0.6-4.6) K/mcL Monocytes # (0.0-1.3) K/mcL Eosinophils # (0.0-0.6) K/mcL Basophils # (0.0-0.2) K/mcL PT (9.4-12.1) Seconds INR APTT (26.0-36.0) Seconds Sodium 140 (136-145) mEq/L Potassium 3.9 (3.5-5.1) mEq/L Chloride 103 (98-107) mEq/L Carbon Dioxide 30 H (23-29) mEq/L BUN 18 (8-23) mg/dL Creatinine 0.94 (0.70-1.30) mg/dL Est GFR ( Amer) > 60 (> 60) Est GFR (Non-Af Amer) > 60 (> 60) BUN/Creatinine Ratio 19 (6-26) Glucose 107 H (70-105) mg/dL POC Glucose (70-99) mg/dL Calculated Osmolality 292 (280-300) Calcium 8.4 L (8.6-10.3) mg/dL Total Bilirubin 0.3 (0.3-1.0) mg/dL Direct Bilirubin 0.1 (0.0-0.2) mg/dL Indirect Bilirubin 0.2 (0.0-1.2) mg/dL AST 14 (13-39) Units/L ALT 11 (7-52) Units/L Alkaline Phosphatase 58 (34-104) Units/L Troponin I < 0.03 (< 0.04) ng/mL B-Natriuretic Peptide 103 H (Less than 100) pg/mL Serum Total Protein 6.2 L (6.4-8.9) g/dL Albumin 4.0 (3.5-5.7) g/dL Globulin 2.2 L (2.4-3.5) g/dL Albumin/Globulin Ratio 1.8 (1.1-2.2) TSH 14.150 H (0.340-5.600) mcIU/mL Urine Color Yellow (Yellow) Urine Clarity Clear (Clear) Urine pH 7.0 (5.0-8.0) pH Units Ur Specific [place] 1.012 (1.010-1.025) Urine Protein Negative (Neg-Trace) mg/dL Urine Glucose (UA) Normal (Normal) mg/dL Urine Ketones Negative (Negative) mg/dL Urine Blood Negative (Negative) Urine Nitrite Negative (Negative) Urine Bilirubin Negative (Negative) Urine Urobilinogen Normal (Normal) mg/dL Ur Leukocyte Esterase Negative (Negative) Ur Culture Indicated? NO (NO) Attestation Statement - Attestation Attestation: I, Madi Stein DO, examined this patient [id number] and my medical decision-making was reviewed with Dr. Filippo Loo, Resident Physician. I agree with the documented findings, disposition and treatment plan as described except to the extent set forth below. Please see my progress notes for details. 82-year-old male presents to the emergency room for evaluation of slurred speech. The patient was at home today and was contacted by his daughter at approximately 1330 hours. During a phone conversation the patient was having slurred speech. There was no confusion. The family member described normal mentation. There were concerned about a stroke and called the squad. Patient was transported to our facility for evaluation and treatment. There is approximately a 1-1/2 our time delay between transportation arrival here to the emergency room. On arrival, the patient had normal vital signs and transit. EMS disclosed no acute neurologic symptoms. He had no audible slurred speech. His vital signs in transport were stable. He is currently denying chest pain, shortness of breath, nausea vomiting or diarrhea. Denies any fevers or chills. Denies any falls trauma or injury. Patient was found sitting on his toilet acting appropriately with his pants around his legs. Some of the symptoms could have been secondary to orthostasis during bowel movement versus other etiology. NIH stroke scale on presentation here is 0. Patient has no cerebellar dysfunction abnormalities. He is alert he is oriented. Head is atraumatic. Pupils are equal round reactive. Extraocular muscles are intact. Oropharynx is patent. Trachea is midline. Lungs are clear. Heart is regular. Abdomen is soft nontender nondistended with no guarding no rigidity and no peritoneal symptoms at this time. CT evaluation of the head with noncontrasted evaluation will be completed along with screening labs looking for infectious etiology or electrolyte abnormality. CT angiography will be added on once a negative CT scans are resulted. Patient has had almost complete if not complete resolution of his symptoms on arrival here and does not meet any criteria for neurologic evaluation or stroke evaluation. Once the workup and treatment course is c ompleted patient will be admitted for definitive management and evaluation of altered mentation, stroke evaluation. See detailed documentation of the physical exam, medical intervention, medical decision-making and disposition in the resident physician's note. No critical care applied the patient's treatment course at this time. [address] scan of the head. Labs are otherwise unremarkable. A thyroid function testing is still elevated. We will continue to monitor here until CT angiography of the head is completed and then admission process is established for syncopal event. 1815 Angiography is negative of the neck. The CT angiography the head is unremarkable for acute vascular significant lesions. Patient will be admitted at this time. The hospitalist was contacted and no other recommendations or concerns are noted. Patient will be admitted for syncopal event with history of cardiac arrhythmia and strokelike symptoms here today. Patient has been provided with appropriate medical intervention. Both he and his are comfortable with the admission be completed at this time. Patient will be admitted for observation and completion of the cardiac versus neurological treatment course. Patient will be observed here in the emergency room until admission process is completed
[2018-06-01 15:58] LABS: Bilirubin,Urine Negative (Negative); Blood,Urine Negative (Negative); Clarity,Urine Clear (Clear); Color,Urine Yellow (Yellow); Glucose,Urine (UA) Normal (Normal); Ketones,Urine Negative (Negative); Leukocyte Esterase,Urine Negative (Negative); Nitrite,Urine Negative (Negative); Protein,Urine Negative (Neg-Trace); Specific Gravity,Urine 1.012 (1.010-1.025); Urobilinogen,Urine Normal (Normal)
[2018-06-01] MEDS ORDERED: Isovue-370 500 ML INFUS..BTL IV ONE (16:03)
--- NOTE | 2018-06-01 20:42 | Internal Med History&Physical ---
Date of Encounter: 06/01/18 Time of Encounter: 20:39 Internal Medicine - H&P: HPI Chief complaint: Dizziness Admitted From: Home Plans for Post Hospital Care: Home History of present illness: Nikhil Berman is an 82-year-old man with aggressive dementia who was admitted here 2 months ago for dizziness and was found to be in A. fib with RVR and during that hospitalization was noted to have an elevated TSH. An echocardiogram and brain MRI were done which showed no acute abnormalities. As per the discharge summary he was started on rivaroxaban and a low dose beta veena with outpatient follow-up by PCP for initiation of levothyroxine if deemed appropriate. He is brought in now due to concern that he was having slurred speech. Family members are not present at this time and he is unable to tell me why he is here. There is conflicting information as to whether he was witnessed by his to have had slurred speech or if it was noticed during a phone conversation by his daughter earlier this afternoon. However it is stated that he did not pass out or have a confusional state. Upon arrival of EMS he was not seen to have any acute neurologic symptoms and had no audible slurred speech. He was found sitting on his toilet acting appropriately with his pants around his legs. On arrival to the ER he was clinically and hemodynamically stable. He had a head CT and CT angiography of his head and neck done which were negative. He is admitted for ongoing observation. On my assessment he states that he has been having dizziness for over a year and it is predominantly when he stands up from a sitting position. He denies ever passing out in the past. He denies associated chest pain, shortness of breath, headache or palpitations. He reports no known medical history. He states he takes a pill given to him by his but he does not know what it is for. He tells me that the only reason he is here is because is is concerned about his increasing dizziness. Past Med Surg Social Fam HX - Past Medical History Medical history: dementia Psychiatric history: no psych history - Past Surgical History Surgical History: no surgical history - Social History Smoking Status: Never smoker Smokeless Tobacco Status: No Alcohol use: none Drug use: none Internal Medicine - H&P: Meds Donepezil HCl [Aricept] 5 mg PO HS 03/12/18 [History] Metoprolol [Lopressor] 12.5 mg PO BID #30 tablet 03/13/18 [Rx] Levothyroxine [Synthroid] 25 mcg PO 0630 03/14/18 [History] Warfarin [Coumadin] 2.5 mg PO 1800 #30 tablet 03/14/18 [Rx] Allergy/AdvReac Type Severity Reaction Status Date / Time No Known Allergies Allergy Verified 03/12/18 14:06 All Systems PM: A 10-system review of systems was performed and is negative for pertinent findings except as documented above in the HPI. Family history reviewed and found noncontributory. - Constitutional Vitals: Temp Pulse Resp BP Pulse Ox 98.0 F 83 14 144/76 94 06/01/18 20:12 06/01/18 20:12 06/01/18 20:12 06/01/18 20:12 06/01/18 20:12 Exam: Vitals: Reviewed General: Well-appearing elderly male who is sitting up in bed in no acute distress and follows commands appropriately Skin: Diffuse scaling in his lower extremities and elbows. HEENT: Moist mucous membranes. Mild conjunctivae pallor. Neck: No lymphadenopathy. No JVD. No carotid bruits. No palpable thyroid. Chest: Normal thoracic expansion. Normal breath sounds. Clear to auscultation. Heart: Normal s1/s2. No m/r/g. Abdomen: Non-distended, soft and non-tender to palpation. No peritoneal reaction. Liver is normal in size. Spleen is not palpable. Extremities: No clubbing, cyanosis or edema. No calf tenderness. Normal distal pulses. Neurological: Awake, alert and oriented to person, place and time. No focal def icits. Steady gait without lateralization. Psych: Affect appropriate. Internal Med - H&P Results - Labs CBC & Chem 7: 06/01/18 14:36 06/01/18 14:36 Labs: Short CBC 06/01/18 Range/Units 14:36 WBC 5.8 (4.3-11.1) K/mcL Hgb 14.6 (12.9-16.9) g/dL Hct 44.3 (37.5-50.1) % Plt Count 149 (140-400) K/mcL Neutrophils # 3.9 (1.6-8.9) K/mcL BMP 06/01/18 14:36 Sodium 140 Potassium 3.9 Chloride 103 Carbon Dioxide 30 H BUN 18 Creatinine 0.94 Glucose 107 H Calcium 8.4 L Cardiac Enzymes 06/01/18 Range/Units 14:36 Troponin I < 0.03 (< 0.04) ng/mL Liver Function 06/01/18 Range/Units 14:36 Total Bilirubin 0.3 (0.3-1.0) mg/dL Direct Bilirubin 0.1 (0.0-0.2) mg/dL AST 14 (13-39) Units/L ALT 11 (7-52) Units/L Alkaline Phosphatase 58 (34-104) Units/L Albumin 4.0 (3.5-5.7) g/dL Urine 06/01/18 Range/Units 15:42 Urine Color Yellow (Yellow) Urine Clarity Clear (Clear) Urine pH 7.0 (5.0-8.0) pH Units Ur Specific [place] 1.012 (1.010-1.025) Urine Protein Negative (Neg-Trace) mg/dL Urine Glucose (UA) Normal (Normal) mg/dL - Impressions ITS Impressions Chest X-Ray 06/01/18 14:30 IMPRESSION: 1. Cardiomegaly with mild vascular congestion. D/ / Bert Rapp MD / Bert Rapp MD Interpreting Provider: Bert Rapp MD Head CT 06/01/18 14:31 IMPRESSION: 1. No acute intracranial abnormality. 2. Ventriculomegaly, likely related to involutional change, however, normal pressure hydrocephalus cannot be excluded. D/ / 06/01/2018 15:07:36 Beny Casper MD / bcarter Interpreting Provider: Beny Casper MD Head CTA 06/01/18 16:03 IMPRESSION: No intracranial arterial abnormality. D/ / Chente Fraire / Chente Fraire Interpreting Provider: Chente Fraire Neck CTA 06/01/18 16:03 IMPRESSION: 1.Unremarkable CTA of the neck. D/ / Bert Rapp MD / Bert Rapp MD Interpreting Provider: Bert Rapp MD - Assessment and plan (1) Dizziness Current Visit: Yes Status: Acute Assessment and plan: The patient was admitted under the auspice of rule out CVA but based on his history, it appears the dizziness seems to be the main issue and is a recurring theme. HE was not seen by EMS to have any neurologic confusion and in the ER no evidence of this ocurring. His head CT and CTA were unremarkable. He had a brain MRI done on his last admission because of this same complaint and showed age- associated volume loss. I am concerned that he may have an element of orthostasis based on what he tells me however further information is required from his family who are not available at this time when I am seeing him. Will obtain orthostatic vitals. He will benefit from neurologic evaluation as well. His biochemically hypothyroid state may also be a contributing factor to this and needs appropriate control. (2) Dementia Current Visit: Yes Status: Chronic Assessment and plan: Stable. Fall/aspiration precautions ordered. Will require frequent re- orientation to prevent delirium and confusion while hospitalized. Qualifiers: Dementia type: unspecified type Dementia behavioral disturbance: without behavioral disturbance Qualified Code(s): F03.90 - Unspecified dementia without behavioral disturbance (3) Elevated TSH Current Visit: Yes Status: Chronic Assessment and plan: Med rec shows he is on levothyroxine 25mcg daily. This seems high inadequate for his TSH however a comprehensive evaluation and follow up will need to be done in the outpatient setting. Will continue for now pending contact with his PCP. (4) Afib Current Visit: Yes Status: Acute Assessment and plan: Currently seems to be in normal sinus rhythm. Med rec shows he was Rx warfarin; discharge summary states he was placed on rivaroxaban and ER note states that he takes aspirin. It is therefore unclear what exactly he is on. His INR is 1. Family and PCP verification is required. In the interim, will monitor on telemetry and have him only on DVT prophylaxis seeing as he is in sinus at this time. Qualifiers: Atrial fibrillation type: paroxysmal Qualified Code(s): I48.0 - Paroxysmal atrial fibrillation (5) DVT prophylaxis Current Visit: Yes Status: Acute Assessment and plan: SubQ heparin ordered for now - Time Spent With Patient Total time spent is greater than 50% in coordination of care (as documented) at patient's floor/unit and/or counseling patient: Greater than 35 minutes
[2018-06-01] MEDS: Ammonium Lactate 30 APPL/225 GM BOTTLE TP SCH (22:41)
[2018-06-01] MEDS: *HR* Heparin 5,000 UNIT/ML VIAL SQ SCH (22:41)
[2018-06-02] MEDS: *HR* Heparin 5,000 UNIT/ML VIAL SQ SCH (05:27)
[2018-06-02] MEDS ORDERED: Levothyroxine 25 MCG TABLET PO SCH (06:30)
--- NOTE | 2018-06-02 08:08 | Neurology - Consult Note ---
Date of Encounter: 06/02/18 Time of Encounter: 08:08 Assessment and Plan (1) Dizziness Current Visit: Yes Status: Resolved Patient presented following an episode of dizziness while having a bowel movement and slurred speech noted yesterday afternoon by his family. He was asymptomatic upon arrival to the ED and NIH stroke scale on presentation was 0. Head CT and CT angiography of his head and neck revealed no acute abnormality. Patient was admitted on 03/24/18 after he was brought in by family due to nausea and dizziness. Carotid ultrasound on 03/23/18 revealed bilateral non-stenotic plaques with tortuous right common carotid artery. Echocardiogram on 03/13/18 revealed LVEF 50-55% and mild left ventricular diastolic dysfunction. Symptoms are likely due to vasovagal related response during bowel movement. (2) Dementia Current Visit: Yes Status: Chronic At baseline. Continue home meds Qualifiers: Dementia type: Alzheimer's disease Alzheimer's disease onset: unspecified onset Dementia behavioral disturbance: without behavioral disturbance Qualified Code(s): G30.9 - Alzheimer's disease, unspecified; F02.80 - Dementia in other diseases classified elsewhere without behavioral disturbance (3) Afib Current Visit: Yes Status: Chronic Continue home meds Qualifiers: Atrial fibrillation type: paroxysmal Qualified Code(s): I48.0 - Paroxysmal atrial fibrillation (4) Elevated TSH Current Visit: Yes Status: Chronic Management per primary team History of Present Illness Chief complaint: Dizziness HPI: Mr. Berman is a 82 year old male with a PMH of Alzheimer's dementia and elevated TSH who presented following an episode of dizziness while having a bowel movement and slurred speech noted yesterday afternoon by his family. However, EMS denied any acute neurological deficits or slurred speech upon arrival to the patient's home. He was asymptomatic upon arrival to the ED and NIH stroke scale on presentation was 0. Head CT and CT angiography of his head and neck revealed no acute abnormality. Patient was admitted for observation and neurology was consulted for further recommendations. Of note, patient was admitted on 03/24/18 after he was brought in by family due to nausea and dizziness. He was found to have an atrial fibrillation with RVR and was started on low dose beta veena for hagan rate control and Xarelto for anticoagulation. Patient reports stable blood pressures at home, stopped the Xarelto due to dizziness, and reports currently only taking Aspirin 325mg daily. During his previous admission his TSH level was 11.869 and repeat TSH level yesterday was 14.150. Carotid ultrasound on 03/23/18 revealed bilateral non- stenotic plaques with tortuous right common carotid artery. Echocardiogram on 03/13/18 revealed LVEF 50-55% and mild left ventricular diastolic dysfunction. Past Med Surg Social Fam HX - Past Medical History Medical history: dementia Psychiatric history: no psych history - Past Surgical History Surgical History: no surgical history - Social History Smoking Status: Never smoker Smokeless Tobacco Status: No Alcohol use: none Drug use: none Medications and Allergies Donepezil HCl [Aricept] 10 mg PO HS 03/12/18 [History] Metoprolol [Lopressor] 12.5 mg PO BID #30 tablet 03/13/18 [Rx] Aspirin 325 mg PO DAILY 06/01/18 [History] Memantine HCl 5 mg PO BID 06/01/18 [History] Levothyroxine [Synthroid] 50 mcg PO 0630 30 Days #30 tablet 06/02/18 [Rx] Allergy/AdvReac Type Severity Reaction Status Date / Time No Known Allergies Allergy Verified 06/01/18 22:38 All Systems: The remainder of the systems were reviewed and are negative - Constitutional Constitutional ROS IM: no chills, no fever(s), no headache(s), no lethargy, no malaise - Nose, Mouth, Throat Nose, mouth and throat: dizziness, no headache(s), no neck pain, no sore throat - Cardiovascular Cardiovascular ROS IM: no chest pain, no irregular heart rhythm, no palpitations - Respiratory Respiratory IM: no cough, no wheezing, no chest congestion - Gastrointestinal Gastrointestinal: no abdominal pain, no nausea, no vomiting - Genitourinary Genitourinary ROS: no difficulty urinating, no urinary frequency, no urinary urgency - Musculoskeletal Musculoskeletal ROS IM: no back pain, no muscle cramps - Integumentary Integumentary IM: no rash, no skin ulcer - Neurological Neurological ROS: confusion, memory loss, no abnormal gait, no loss of vision, no numbness, no radicular pain, no syncope - Psychiatric Psychiatric general PM: irritability, no anxiety - Endocrine Endocrine IM: no polydipsia, no polyphagia, no polyuria Physical Examination - Vital Signs Vital Signs: Initial Vital Signs Temp Pulse Resp BP Pulse Ox 98.2 F 62 16 166/81 95 06/01/18 14:27 06/01/18 14:27 06/01/18 14:27 06/01/18 14:27 06/01/18 14:27 - Constitutional General appearance: comfortable - Neurologic Sensorimotor examination: intact Detailed motor examination: grossly full strength in all extremities, full strength in all major muscle groups Motor examination - right side: 11/06: deltoids, biceps, triceps, overhead worker, hip flexors, tibialis Anterior, quadriceps, toe extension (EHL), plantarflexion Motor examination - left side: 11/06: deltoids, biceps, triceps, hip flexors, gr ip, quadriceps, tibialis Anterior, toe extension (EHL), plantarflexion Detailed sensory examination: intact, light touch Reflexes: Biceps: 2+, Triceps: 2+, Brachioradialis: 2+, Patella: 2+, Achilles: 2+ Mental Status Examination: awake, alert (A&O x2), oriented to person, oriented to place, follows commands appropriately, answers questions appropriately, no agnosia, no aphasia, no aproxia, makes eye contact, follows simple commands Cranial nerve examination: PERRL, EOMI, visual samson intact, sensory to face intact, mastication intact, no facial asymmetry is present, no dysarthria, flexes SCM and trapezius muscles symmetrically with full power, tongue protrudes midline, no atrophy or facial fasiculations present Cerebellar examination: no dysmetria, performs finger to nose and heel to freitas symmetrically without ataxia, no difficulty with rapid alternating movements Results - Laboratory Findings CBC and BMP: 06/01/18 14:36 06/01/18 14:36 Abnormal lab findings: Abnormal lab results APTT 23.7 Seconds (26.0-36.0) L 06/01/18 14:36 Carbon Dioxide 30 mEq/L (23-29) H 06/01/18 14:36 Glucose 107 mg/dL (70-105) H 06/01/18 14:36 Calcium 8.4 mg/dL (8.6-10.3) L 06/01/18 14:36 B-Natriuretic Peptide 103 pg/mL (Less than 100) H 06/01/18 14:45 Serum Total Protein 6.2 g/dL (6.4-8.9) L 06/01/18 14:36 Globulin 2.2 g/dL (2.4-3.5) L 06/01/18 14:36 TSH 14.150 mcIU/mL (0.340-5.600) H 06/01/18 14:36 - Diagnostic Findings Additional findings: ITS Impressions Chest X-Ray 06/01/18 14:30 IMPRESSION: 1. Cardiomegaly with mild vascular congestion. D/ / Bert Rapp MD / Bert Rapp MD Interpreting Provider: Bert Rapp MD Head CT 06/01/18 14:31 IMPRESSION: 1. No acute intracranial abnormality. 2. Ventriculomegaly, likely related to involutional change, however, normal pressure hydrocephalus cannot be excluded. D/ / 06/01/2018 15:07:36 Beny Casper MD / unruly Interpreting Provider: Beny Casper MD Head CTA 06/01/18 16:03 IMPRESSION: No intracranial arterial abnormality. D/ / Chente Fraire / Chente Fraire Interpreting Provider: Chente Fraire Neck CTA 06/01/18 16:03 IMPRESSION: 1.Unremarkable CTA of the neck. D/ / Bert Rapp MD / Bert Rapp MD Interpreting Provider: Bert Rapp MD Consult Discharge Plan - Plan Instructions: Levothyroxine (By mouth) Referrals: Chen Costello MD [Primary Care Provider] - 06/10/18 10:00 am Prescriptions: Levothyroxine [Synthroid] 50 mcg PO 0630 30 Days #30 tablet
[2018-06-02] MEDS: Ammonium Lactate 30 APPL/225 GM BOTTLE TP SCH (08:25)
[2018-06-02] MEDS ORDERED: Aspirin 325 MG TABLET PO SCH (09:00)
--- NOTE | 2018-06-02 09:10 | Electrocardiograph Report ---
[place] [id number] Test Date: 2018-06-01 Pat Name: Nikhil Berman Department: [id number] Room: 3B23 Gender: M Purchase Analyst: : 1935 Requested By: Madi Stein Order Number: [id number] Reading MD: Mendel Woo Measurements Intervals [place] Rate: 62 P: 48 AR: 154 QRS: 46 QRSD: 101 T: 56 QT: 437 QTc: 444 Interpretive Statements Sinus rhythm Ventricular premature complex Abnormal R-wave progression, early transition Electronically Signed On 06-02-2018 9:09:19 EST by Mendel Woo
--- NOTE | 2018-06-02 10:58 | Discharge Summary ---
Date of Encounter: 06/02/18 Time of Encounter: 10:54 - Discharge Diagnosis (1) Dizziness Priority: Secondary Status: Resolved Assessment and Plan: The patient was admitted for rule out CVA Spouse was concerned as he presented with dizziness and slurred speech Symptoms had resolved prior to arrival to the ED NIH score 0 Negative for postural hypotension Neuro imaging including CT head, CTA head/neck negative for acute abnormalities Recent MRI 03/12/18 without acute infarct, intracranial hemorrhage or significant mass effect Echocardiogram 03/13/18 with EF 50-55% and mild LV DD Neurological exam remains nonfocal Neuro see in consultation without recommendations for further intervention or workup (2) Elevated TSH Priority: Primary Status: Chronic Assessment and Plan: Diagnosis of hypothyroidism during last admission Being followed by PCP TSH-14.150 Currently taking levothyroxine 25 mcg daily; dose appears to be an adequate I will increase dose to 50 mcg daily The patient is spouse have been instructed to follow-up with PCP this coming week He will need repeat TSH in 6-weeks (3) Dementia Priority: Secondary Status: Chronic Qualifiers: Dementia type: Alzheimer's disease Alzheimer's disease onset: unspecified onset Dementia behavioral disturbance: without behavioral disturbance Qualified Code(s): G30.9 - Alzheimer's disease, unspecified; F02.80 - Dementia in other diseases classified elsewhere without behavioral disturbance (4) Afib Priority: Secondary Status: Chronic Qualifiers: Atrial fibrillation type: paroxysmal Qualified Code(s): I48.0 - Paroxysmal atrial fibrillation (5) DVT prophylaxis Priority: Secondary Status: Acute Hospital course: Mr. Berman is a 82 year old male who presented with dizziness and slurred speech. The patient's was concerned for possible CVA she was reporting the patient was found on his toilet unable to get up due to dizziness. She also rep orted that he was having slurred speech. He was admitted for CVA rule out which was subsequently ruled out. CTA of head and neck without flow-limiting stenosis. CT of head negative for acute intracranial abnormality. Recent MRI 03/22 negative for acute abnormalities. Echocardiogram 03/22 with EF 50-55% and mild LV DD. Neuro exam remains nonfocal. Of note his TSH was found to be further elevated when compared to prior admissions. He takes 25 mcg of synthroid which is being followed by his PCP. I have increased his dose to 50 mcg daily. Both he and his spouse have been instructed to follow-up with PCP within 1 week of discharge. He will need 6 weeks follow-up with repeat TSH. They have been provided ample education regarding S/SX of stroke and has been instructed to return should these symptoms occur. Discharge discussed with: patient, nurse, data center consultant - Time Spent with Patient Total time spent providing and/or coordinating discharge services: Less than 30 minutes - Discharge Medications Home Medications: Donepezil HCl [Aricept] 10 mg PO HS 03/12/18 [History] Metoprolol [Lopressor] 12.5 mg PO BID #30 tablet 03/13/18 [Rx] Aspirin 325 mg PO DAILY 06/01/18 [History] Memantine HCl 5 mg PO BID 06/01/18 [History] Levothyroxine [Synthroid] 50 mcg PO 0630 30 Days #30 tablet 06/02/18 [Rx] Allergies/Adverse Reactions: Allergy/AdvReac Type Severity Reaction Status Date / Time No Known Allergies Allergy Verified 06/01/18 22:38 Date of admission: 06/01/18 18:16 Primary care physician: Chen Costello MD Consults: 06/01/18 20:53 Consult to Neurology [CONS] Routine Consulting Provider: Neu[facility] Reason for Consult: 82 year old man with dementia reported to have had slurred speech by family, unwitnessed by [facility] staff complains of progressive dizziness. No evidence of infarction. Call Completed: No Discharging clinician: Joss Zaragoza Anticipated date of discharge: 06/02/18 - Constitutional Vitals: Temp Pulse Resp BP Pulse Ox 97.5 F L 78 19 145/71 95 06/02/18 07:13 06/02/18 07:13 06/02/18 07:13 06/02/18 07:13 06/02/18 07:13 General appearance: Present: A&O X 1 Exam: see exam - Head Head exam: Present: atraumatic, normocephalic - Eye Eye exam: Present: PERRL, conjuntiva pink, sclera anicteric Pupils: Present: PERRL - Neck Neck exam general surgery: Present: supple, trachea midline. Absent: lymphadenopathy - Respiratory Respiratory exam: Present: CTAB. Absent: accessory muscle use, rales, rhonchi, wheezes - Cardiovascular Cardiovascular exam: Present: RRR, +S1, +S2. Absent: diastolic murmur, gallop, rubs, systolic murmur - GI/Abdominal GI/Abdominal exam: Present: normal bowel sounds, soft, no peritoneal signs. Absent: distended, tenderness - Extremities Exam Extremities exam: Present: warm, radial pulses palpable and symmetrical. Absent: calf tenderness, cyanotic, pedal edema - Neurological Exam Neurological exam: Present: CN II-XII intact, oriented X3, no focal deficits. Absent: pronater drift, facial droop, speech deficit - Skin Skin exam: Present: dry, intact - Patient Status Disposition: Home, Self-Care Condition: Fair Functional capacity at discharge: independent ambulation Overall status at discharge: patient is progressing back to baseline - Discharge Instructions Follow Up With: Chen Costello MD [Primary Care Provider] - - Diet and Activity Activity: increase activity as tolerated, resume usual activities as tolerated Diet: diabetic diet, low fat, low cholesterol, low salt diet
[2018-06-02 11:13] VITALS: BP 188/83
== END 2018-06-02 12:07 | disposition home or self-care (01) ==
LOC: 3BNU 14:24 → EMEROOARM 14:24 → SUATTDRO 18:16 → 3BNU 19:26
PROVIDERS: ADMIT Internal Medicine Cardiovascular Disease; ATTEND Nurse Practitioner

== ENCOUNTER 2020-07-05 14:31 | Inpatient (IN) ==
[2020-07-05 15:46] LABS: Bilirubin,Urine Negative (Negative); Blood,Urine Negative (Negative); Clarity,Urine Clear (Clear); Color,Urine Light-Yellow (Yellow); Glucose,Urine (UA) Normal (Normal); Ketones,Urine Negative (Negative); Leukocyte Esterase,Urine Negative (Negative); Nitrite,Urine Negative (Negative); PH,Urine 7.5 pH Units (5.0-8.0); Protein,Urine Trace mg/dL (Neg-Trace); Specific Gravity,Urine 1.019 (1.010-1.025); Urobilinogen,Urine Normal (Normal)
[2020-07-05 15:48] LABS: Basophils % 0.7 %; Eosinophils # 0.1 K/mcL (0.0-0.6); Eosinophils % 2.5 %; Hematocrit 46.8 % (37.5-50.1); Hemoglobin 14.9 g/dL (12.9-16.9); Immature Granulocytes % 0.4 % (0-4); Lymphocytes % 17.8 %; Mean Corpuscular HGB Conc 31.8 g/dL (31.6-35.5); Mean Corpuscular Hemoglobin 29.8 pg (28.0-33.3); Mean Corpuscular Volume 93.6 fL (83.0-100.0); Mean Platelet Volume 10.3 fL (9.4-12.4); Monocytes # 0.7 K/mcL (0.0-1.3); Monocytes % 11.5 %; Neutrophils # 3.8 K/mcL (1.6-8.9); Platelet Count 146 K/mcL (140-400); Red Cell Distribution Width 13.2 % (11.5-14.5); Segmented Neutrophils % 67.1 %; White Blood Count 5.6 K/mcL (4.3-11.1)
[2020-07-05 16:10] LABS: Alanine Aminotransferase 12 Units/L (7-52); Albumin 4.1 g/dL (3.5-5.7); Albumin/Globulin Ratio 1.8 (1.1-2.2); Alkaline Phosphatase 55 Units/L (34-104); Aspartate Amino Transferase 14 Units/L (13-39); BUN/Creatinine Ratio 11 (6-26); Bilirubin,Total 0.5 mg/dL (0.3-1.0); Blood Urea Nitrogen 12 mg/dL (8-23); Calcium 9.1 mg/dL (8.6-10.3); Carbon Dioxide 29 mEq/L (23-29); Chloride 105 mEq/L (98-107); Globulin 2.3 g/dL (2.4-3.5); Glucose 90 mg/dL (70-105); Osmolality,Calculated 287 (280-300); Sodium 139 mEq/L (136-145); Total Protein 6.4 g/dL (6.4-8.9); Troponin I < 0.03 ng/mL (< 0.04); eGFR For African Americans > 60 (> 60); eGFR For Non-African Americans > 60 (> 60)
[2020-07-05] MEDS ORDERED: Naloxone 0.4 MG/ML INJ IVP PRN (17:27)
[2020-07-05] MEDS: *HR* Heparin 5,000 UNIT/ML VIAL SQ SCH (19:53)
[2020-07-05] MEDS ORDERED: Haloperidol Lactate 5 MG/ML VIAL IVP PRN (20:54)
[2020-07-05] MEDS ORDERED: *HR* LORazepam 2 MG/ML VIAL IVP ONE (20:55)
[2020-07-05] MEDS ORDERED: *HR* LORazepam 2 MG/ML VIAL ONE (20:56)
[2020-07-06] MEDS ORDERED: *HR* LORazepam 2 MG/ML VIAL IVP PRN (00:44)
[2020-07-06] MEDS ORDERED: QUEtiapine Fumarate 25 MG TABLET PO SCH (01:00)
[2020-07-06] MEDS: *HR* Heparin 5,000 UNIT/ML VIAL SQ SCH ×2 (03:40→17:00)
[2020-07-06] MEDS ORDERED: Haloperidol Lactate 5 MG/ML VIAL IVP SCH (04:00)
[2020-07-06 07:22] LABS: Hematocrit 45.2 % (37.5-50.1); Hemoglobin 14.6 g/dL (12.9-16.9); Mean Corpuscular HGB Conc 32.3 g/dL (31.6-35.5); Mean Corpuscular Hemoglobin 29.4 pg (28.0-33.3); Mean Corpuscular Volume 91.1 fL (83.0-100.0); Mean Platelet Volume 10.1 fL (9.4-12.4); Platelet Count 141 K/mcL (140-400); Red Blood Count 4.96 M/mcL (4.19-5.50); Red Cell Distribution Width 13.2 % (11.5-14.5); White Blood Count 5.7 K/mcL (4.3-11.1)
[2020-07-06] MEDS ORDERED: *HR* LORazepam 2 MG/ML VIAL IVP ONE ×2 (15:35→17:40)
[2020-07-06] MEDS: *HR* LORazepam 2 MG/ML VIAL IVP PRN ×2 (15:41→22:42)
[2020-07-06] MEDS: haloperidoL 1 MG TABLET PO SCH (17:00)
[2020-07-06] MEDS ORDERED: Haloperidol Lactate 5 MG/ML VIAL IVP ONE (19:09)
[2020-07-06] MEDS: QUEtiapine Fumarate 25 MG TABLET PO SCH (19:20)
[2020-07-07] MEDS: haloperidoL 1 MG TABLET PO SCH ×3 (03:31→17:25)
[2020-07-07] MEDS: *HR* Heparin 5,000 UNIT/ML VIAL SQ SCH ×2 (03:31→17:26)
[2020-07-07 10:29] LABS: Hematocrit 46.2 % (37.5-50.1); Immature Platelets 3.8 % (1.1-6.1); Mean Corpuscular HGB Conc 32.5 g/dL (31.6-35.5); Mean Corpuscular Hemoglobin 29.4 pg (28.0-33.3); Mean Corpuscular Volume 90.6 fL (83.0-100.0); Mean Platelet Volume 10.1 fL (9.4-12.4); Red Blood Count 5.1 M/mcL (4.19-5.50); Red Cell Distribution Width 13.1 % (11.5-14.5); White Blood Count 4.5 K/mcL (4.3-11.1)
[2020-07-07] MEDS: *HR* LORazepam 2 MG/ML VIAL IVP PRN (14:26)
[2020-07-07] MEDS ORDERED: *HR* LORazepam 2 MG/ML VIAL IVP ONE (15:38)
[2020-07-07] MEDS ORDERED: Haloperidol Lactate 5 MG/ML VIAL IM ONE (15:49)
[2020-07-07] MEDS: QUEtiapine Fumarate 25 MG TABLET PO SCH (21:10)
[2020-07-08] MEDS: haloperidoL 1 MG TABLET PO SCH ×3 (04:51→17:16)
[2020-07-08] MEDS: *HR* Heparin 5,000 UNIT/ML VIAL SQ SCH ×2 (05:04→17:17)
[2020-07-08 06:25] LABS: Hematocrit 46.7 % (37.5-50.1); Hemoglobin 14.9 g/dL (12.9-16.9); Mean Corpuscular HGB Conc 31.9 g/dL (31.6-35.5); Mean Corpuscular Hemoglobin 29.2 pg (28.0-33.3); Mean Corpuscular Volume 91.4 fL (83.0-100.0); Mean Platelet Volume 10.4 fL (9.4-12.4); Platelet Count 147 K/mcL (140-400); Red Blood Count 5.11 M/mcL (4.19-5.50); Red Cell Distribution Width 13.2 % (11.5-14.5); White Blood Count 5.7 K/mcL (4.3-11.1)
[2020-07-08] MEDS: *HR* LORazepam 2 MG/ML VIAL IVP PRN (15:48)
[2020-07-09] MEDS: *HR* LORazepam 2 MG/ML VIAL IVP PRN ×2 (00:27→16:25)
[2020-07-09] MEDS: QUEtiapine Fumarate 25 MG TABLET PO SCH ×2 (01:24→19:57)
[2020-07-09] MEDS: haloperidoL 1 MG TABLET PO SCH ×3 (04:43→18:07)
[2020-07-09 06:11] LABS: Hematocrit 48.1 % (37.5-50.1); Hemoglobin 15.3 g/dL (12.9-16.9); Mean Corpuscular HGB Conc 31.8 g/dL (31.6-35.5); Mean Corpuscular Volume 91.1 fL (83.0-100.0); Mean Platelet Volume 10.4 fL (9.4-12.4); Platelet Count 144 K/mcL (140-400); Red Blood Count 5.28 M/mcL (4.19-5.50); Red Cell Distribution Width 13.2 % (11.5-14.5); White Blood Count 6.8 K/mcL (4.3-11.1)
[2020-07-09] MEDS: *HR* Heparin 5,000 UNIT/ML VIAL SQ SCH ×2 (08:34→18:07)
[2020-07-09] MEDS ORDERED: Haloperidol Lactate 5 MG/ML VIAL IVP ONE (17:32)
[2020-07-10] MEDS: haloperidoL 1 MG TABLET PO SCH ×4 (03:07→20:13)
[2020-07-10] MEDS: *HR* Heparin 5,000 UNIT/ML VIAL SQ SCH ×2 (04:15→17:46)
[2020-07-10 06:12] LABS: Hematocrit 47.9 % (37.5-50.1); Hemoglobin 15.4 g/dL (12.9-16.9); Mean Corpuscular HGB Conc 32.2 g/dL (31.6-35.5); Mean Corpuscular Hemoglobin 29.8 pg (28.0-33.3); Mean Corpuscular Volume 92.8 fL (83.0-100.0); Mean Platelet Volume 10.2 fL (9.4-12.4); Platelet Count 148 K/mcL (140-400); Red Blood Count 5.16 M/mcL (4.19-5.50); Red Cell Distribution Width 13.2 % (11.5-14.5); White Blood Count 6.7 K/mcL (4.3-11.1)
[2020-07-10] MEDS ORDERED: *HR* Metoprolol 5 MG/5 ML VIAL IVP ONE (14:20)
[2020-07-10] MEDS ORDERED: Perflutren Lipid Microsphere 1.3 ML in 0.9 % Sodium Chloride 8.7 ML IVP PRN (14:22)
[2020-07-10 15:50] LABS: BUN/Creatinine Ratio 21 (6-26); Blood Urea Nitrogen 21 mg/dL (8-23); Calcium 9.3 mg/dL (8.6-10.3); Carbon Dioxide 23 mEq/L (23-29); Chloride 108 mEq/L (98-107); Glucose 119 mg/dL (70-105); Osmolality,Calculated 300 (280-300); Sodium 143 mEq/L (136-145); Thyroid Stimulating Hormone 12.296 mcIU/mL (0.340-5.600); eGFR For African Americans > 60 (> 60); eGFR For Non-African Americans > 60 (> 60)
[2020-07-10] MEDS: *HR* LORazepam 2 MG/ML VIAL IVP PRN (17:50)
[2020-07-10] MEDS: QUEtiapine Fumarate 25 MG TABLET PO SCH (19:36)
[2020-07-11] MEDS: *HR* LORazepam 2 MG/ML VIAL IVP PRN ×2 (05:09→18:58)
[2020-07-11] MEDS: *HR* Heparin 5,000 UNIT/ML VIAL SQ SCH ×2 (05:09→17:38)
[2020-07-11] MEDS: Levothyroxine 25 MCG TABLET PO SCH (05:10)
[2020-07-11] MEDS ORDERED: Haloperidol Lactate 5 MG/ML VIAL IM ONE ×2 (08:19→11:10)
[2020-07-11 08:59] LABS: Adenovirus Not Detected (Not Detect); Bordetella Pertussis Not Detected (Not Detect); Chlamydophila pneumoniae Not Detected (Not Detect); Coronavirus 229E Not Detected (Not Detect); Coronavirus HKU1 Not Detected (Not Detect); Coronavirus NL63 Not Detected (Not Detect); Coronavirus OC43 Not Detected (Not Detect); Human Metapneumovirus Not Detected (Not Detect); Human Rhinovirus/Enterovirus Not Detected (Not Detect); Influenza A Subtype 2009 H1 Not Detected (Not Detect); Influenza B Not Detected (Not Detect); Mycoplasma pneumoniae Not Detected (Not Detect); Parainfluenza Virus 1 Not Detected (Not Detect); Parainfluenza Virus 2 Not Detected (Not Detect); Parainfluenza Virus 3 Not Detected (Not Detect); Parainfluenza Virus 4 Not Detected (Not Detect); Respiratory Syncytial Virus Not Detected (Not Detect)
[2020-07-11 09:01] LABS: SARS-CoV-2 DETECTED (Not Detect)
[2020-07-11] MEDS ORDERED: cefTRIAXone 1,000 MG in Water for inj. (sterile) 10 ML IVP SCH (10:00)
[2020-07-11] MEDS ORDERED: Haloperidol Lactate 5 MG/ML VIAL ONE (11:14)
[2020-07-11] MEDS ORDERED: Ziprasidone 10 MG in Water for inj. (sterile) 0.5 ML IM ONE (11:56)
[2020-07-11] MEDS: Ipratropium 1 PUFF INHALER IH SCH ×4 (12:40→23:34)
[2020-07-11] MEDS: Aspirin 325 MG TABLET PO SCH (13:00)
[2020-07-11] MEDS: haloperidoL 1 MG TABLET PO SCH ×2 (13:00→17:39)
[2020-07-11] MEDS: Azithromycin 500 MG in D5% in Water 250 ML IVPB SCH (14:52)
[2020-07-11 14:59] LABS: Basophils % 0.5 %; Eosinophils % 0.8 %; Hematocrit 49.7 % (37.5-50.1); Immature Granulocytes % 0.3 % (0-4); Lymphocytes # 0.4 K/mcL (0.6-4.6); Lymphocytes % 10.3 %; Mean Corpuscular HGB Conc 32.2 g/dL (31.6-35.5); Mean Corpuscular Hemoglobin 30.8 pg (28.0-33.3); Mean Corpuscular Volume 95.6 fL (83.0-100.0); Mean Platelet Volume 10.4 fL (9.4-12.4); Monocytes # 0.5 K/mcL (0.0-1.3); Monocytes % 12.3 %; Platelet Count 125 K/mcL (140-400); Red Cell Distribution Width 13.5 % (11.5-14.5); Segmented Neutrophils % 75.8 %
[2020-07-11 15:15] LABS: Alanine Aminotransferase 20 Units/L (7-52); Albumin 4.2 g/dL (3.5-5.7); Albumin/Globulin Ratio 1.4 (1.1-2.2); Alkaline Phosphatase 57 Units/L (34-104); Aspartate Amino Transferase 25 Units/L (13-39); BUN/Creatinine Ratio 20 (6-26); Bilirubin,Total 0.6 mg/dL (0.3-1.0); Blood Urea Nitrogen 23 mg/dL (8-23); Calcium 9.1 mg/dL (8.6-10.3); Carbon Dioxide 29 mEq/L (23-29); Chloride 108 mEq/L (98-107); Glucose 116 mg/dL (70-105); Osmolality,Calculated 307 (280-300); Potassium 3.8 mEq/L (3.5-5.1); Sodium 146 mEq/L (136-145); Total Protein 7.2 g/dL (6.4-8.9); eGFR For African Americans > 60 (> 60); eGFR For Non-African Americans > 60 (> 60)
[2020-07-11] MEDS: QUEtiapine Fumarate 25 MG TABLET PO SCH (19:24)
[2020-07-11] MEDS ORDERED: *HR* Metoprolol 5 MG/5 ML VIAL IVP PRN (20:52)
[2020-07-12 01:32] LABS: Basophils % 0.2 %; Hematocrit 48.5 % (37.5-50.1); Hemoglobin 15.4 g/dL (12.9-16.9); Immature Granulocytes % 0.2 % (0-4); Lymphocytes # 0.3 K/mcL (0.6-4.6); Lymphocytes % 7.9 %; Mean Corpuscular HGB Conc 31.8 g/dL (31.6-35.5); Mean Corpuscular Hemoglobin 29.6 pg (28.0-33.3); Mean Corpuscular Volume 93.1 fL (83.0-100.0); Mean Platelet Volume 10.5 fL (9.4-12.4); Monocytes # 0.5 K/mcL (0.0-1.3); Monocytes % 10.6 %; Neutrophils # 3.5 K/mcL (1.6-8.9); Platelet Count 145 K/mcL (140-400); Red Blood Count 5.21 M/mcL (4.19-5.50); Red Cell Distribution Width 13.5 % (11.5-14.5); Segmented Neutrophils % 81.1 %; White Blood Count 4.3 K/mcL (4.3-11.1)
[2020-07-12 01:44] LABS: Alanine Aminotransferase 20 Units/L (7-52); Albumin/Globulin Ratio 1.4 (1.1-2.2); Alkaline Phosphatase 57 Units/L (34-104); Aspartate Amino Transferase 21 Units/L (13-39); BUN/Creatinine Ratio 24 (6-26); Bilirubin,Total 0.5 mg/dL (0.3-1.0); Blood Urea Nitrogen 24 mg/dL (8-23); Calcium 8.8 mg/dL (8.6-10.3); Carbon Dioxide 27 mEq/L (23-29); Chloride 109 mEq/L (98-107); Globulin 2.8 g/dL (2.4-3.5); Glucose 144 mg/dL (70-105); Osmolality,Calculated 307 (280-300); Potassium 4.2 mEq/L (3.5-5.1); Sodium 145 mEq/L (136-145); Total Protein 6.8 g/dL (6.4-8.9); eGFR For African Americans > 60 (> 60); eGFR For Non-African Americans > 60 (> 60)
[2020-07-12] MEDS: Ipratropium 1 PUFF INHALER IH SCH ×6 (04:43→23:36)
[2020-07-12] MEDS: Levothyroxine 25 MCG TABLET PO SCH (05:21)
[2020-07-12] MEDS: *HR* Heparin 5,000 UNIT/ML VIAL SQ SCH (05:21)
[2020-07-12] MEDS: haloperidoL 1 MG TABLET PO SCH ×3 (07:56→17:07)
[2020-07-12] MEDS: Aspirin 325 MG TABLET PO SCH (09:30)
[2020-07-12] MEDS: cefTRIAXone 1,000 MG in Water for inj. (sterile) 10 ML IVP SCH (09:30)
[2020-07-12] MEDS: Azithromycin 500 MG in D5% in Water 250 ML IVPB SCH (09:31)
[2020-07-12] MEDS: QUEtiapine Fumarate 25 MG TABLET PO SCH (19:33)
[2020-07-13] MEDS: *HR* LORazepam 2 MG/ML VIAL IVP PRN ×3 (01:18→21:24)
[2020-07-13] MEDS: haloperidoL 1 MG TABLET PO SCH ×3 (03:01→17:00)
[2020-07-13] MEDS: Ipratropium 1 PUFF INHALER IH SCH ×5 (04:05→20:18)
[2020-07-13] MEDS: *HR* Enoxaparin 40 MG/0.4 ML SYRINGE SQ SCH (05:38)
[2020-07-13] MEDS: Levothyroxine 25 MCG TABLET PO SCH (05:38)
[2020-07-13] MEDS: Aspirin 325 MG TABLET PO SCH (09:31)
[2020-07-13] MEDS: cefTRIAXone 1,000 MG in Water for inj. (sterile) 10 ML IVP SCH (09:31)
[2020-07-13] MEDS: Azithromycin 500 MG in D5% in Water 250 ML IVPB SCH (09:31)
[2020-07-13] MEDS ORDERED: *HR* LORazepam 2 MG/ML VIAL IVP ONE (12:30)
[2020-07-13] MEDS: QUEtiapine Fumarate 25 MG TABLET PO SCH (20:47)
[2020-07-14] MEDS: Ipratropium 1 PUFF INHALER IH SCH ×7 (00:07→23:52)
[2020-07-14] MEDS: *HR* LORazepam 2 MG/ML VIAL IVP PRN ×3 (03:13→23:14)
[2020-07-14] MEDS: haloperidoL 1 MG TABLET PO SCH ×4 (03:13→17:41)
[2020-07-14] MEDS: Levothyroxine 25 MCG TABLET PO SCH (05:47)
[2020-07-14] MEDS: *HR* Enoxaparin 40 MG/0.4 ML SYRINGE SQ SCH (05:48)
[2020-07-14] MEDS: cefTRIAXone 1,000 MG in Water for inj. (sterile) 10 ML IVP SCH (07:31)
[2020-07-14] MEDS: Aspirin 325 MG TABLET PO SCH (07:32)
[2020-07-14] MEDS: Azithromycin 500 MG in D5% in Water 250 ML IVPB SCH (11:56)
[2020-07-14] MEDS: QUEtiapine Fumarate 25 MG TABLET PO SCH (21:08)
[2020-07-15] MEDS: haloperidoL 1 MG TABLET PO SCH ×3 (03:10→17:48)
[2020-07-15 03:20] LABS: Hemoglobin 17.7 g/dL (12.9-16.9); Immature Platelets 4.7 % (1.1-6.1); Mean Corpuscular Hemoglobin 29.4 pg (28.0-33.3); Mean Corpuscular Volume 94.9 fL (83.0-100.0); Mean Platelet Volume 10.9 fL (9.4-12.4); Red Blood Count 6.02 M/mcL (4.19-5.50); Red Cell Distribution Width 13.8 % (11.5-14.5); White Blood Count 4.3 K/mcL (4.3-11.1)
[2020-07-15 03:22] LABS: Hematocrit 57.1 % (37.5-50.1)
[2020-07-15 03:36] LABS: BUN/Creatinine Ratio 28 (6-26); Blood Urea Nitrogen 27 mg/dL (8-23); Carbon Dioxide 29 mEq/L (23-29); Chloride 110 mEq/L (98-107); Glucose 99 mg/dL (70-105); Magnesium 2.6 mg/dL (1.6-2.6); Osmolality,Calculated 315 (280-300); Potassium 3.7 mEq/L (3.5-5.1); Sodium 150 mEq/L (136-145); eGFR For African Americans > 60 (> 60); eGFR For Non-African Americans > 60 (> 60)
[2020-07-15] MEDS: Ipratropium 1 PUFF INHALER IH SCH ×6 (04:33→23:54)
[2020-07-15] MEDS: *HR* Enoxaparin 40 MG/0.4 ML SYRINGE SQ SCH (05:06)
[2020-07-15] MEDS: Levothyroxine 25 MCG TABLET PO SCH (05:06)
[2020-07-15] MEDS ORDERED: Potassium Chloride 20 MEQ in D5% in Water 1,000 ML IVC SCH (08:15)
[2020-07-15] MEDS: Azithromycin 500 MG in D5% in Water 250 ML IVPB SCH (09:26)
[2020-07-15] MEDS: cefTRIAXone 1,000 MG in Water for inj. (sterile) 10 ML IVP SCH (09:27)
[2020-07-15] MEDS: Aspirin 325 MG TABLET PO SCH (09:27)
[2020-07-15] MEDS: QUEtiapine Fumarate 25 MG TABLET PO SCH (19:57)
[2020-07-16] MEDS: *HR* LORazepam 2 MG/ML VIAL IVP PRN ×4 (00:10→22:39)
[2020-07-16] MEDS: haloperidoL 1 MG TABLET PO SCH ×2 (03:01→11:16)
[2020-07-16] MEDS: Ipratropium 1 PUFF INHALER IH SCH ×2 (03:31→08:08)
[2020-07-16] MEDS: *HR* Enoxaparin 40 MG/0.4 ML SYRINGE SQ SCH (04:56)
[2020-07-16] MEDS: Levothyroxine 25 MCG TABLET PO SCH (04:57)
[2020-07-16 06:13] LABS: BUN/Creatinine Ratio 26 (6-26); Blood Urea Nitrogen 27 mg/dL (8-23); Calcium 8.7 mg/dL (8.6-10.3); Carbon Dioxide 32 mEq/L (23-29); Chloride 107 mEq/L (98-107); Glucose 105 mg/dL (70-105); Osmolality,Calculated 307 (280-300); Potassium 3.5 mEq/L (3.5-5.1); Sodium 146 mEq/L (136-145); eGFR For African Americans > 60 (> 60); eGFR For Non-African Americans > 60 (> 60)
[2020-07-16] MEDS ORDERED: Ipratropium 1 PUFF INHALER IH PRN (08:07)
[2020-07-16] MEDS: Aspirin 325 MG TABLET PO SCH (09:03)
[2020-07-16] MEDS ORDERED: *HR* LORazepam 2 MG/ML VIAL IVP ONE (09:31)
[2020-07-16] MEDS ORDERED: Potassium Chloride 20 MEQ in D5% in Water 1,000 ML IVC SCH (12:45)
[2020-07-16] MEDS: QUEtiapine Fumarate 25 MG TABLET PO SCH (22:39)
[2020-07-17] MEDS: *HR* Enoxaparin 40 MG/0.4 ML SYRINGE SQ SCH (05:14)
[2020-07-17] MEDS: Levothyroxine 25 MCG TABLET PO SCH (05:14)
[2020-07-17 06:50] LABS: BUN/Creatinine Ratio 24 (6-26); Blood Urea Nitrogen 24 mg/dL (8-23); Calcium 8.6 mg/dL (8.6-10.3); Carbon Dioxide 28 mEq/L (23-29); Chloride 109 mEq/L (98-107); Glucose 108 mg/dL (70-105); Osmolality,Calculated 307 (280-300); Potassium 3.8 mEq/L (3.5-5.1); Sodium 146 mEq/L (136-145); eGFR For African Americans > 60 (> 60); eGFR For Non-African Americans > 60 (> 60)
[2020-07-17] MEDS: Aspirin 325 MG TABLET PO SCH (09:16)
[2020-07-17] MEDS ORDERED: D5% in Water 1,000 ML IVC SCH (12:00)
[2020-07-17] MEDS: QUEtiapine Fumarate 25 MG TABLET PO SCH (20:25)
[2020-07-17] MEDS: *HR* LORazepam 2 MG/ML VIAL IVP PRN (20:35)
[2020-07-18] MEDS: *HR* LORazepam 2 MG/ML VIAL IVP PRN ×2 (01:48→10:10)
[2020-07-18] MEDS: *HR* Enoxaparin 40 MG/0.4 ML SYRINGE SQ SCH (05:28)
[2020-07-18] MEDS: Levothyroxine 25 MCG TABLET PO SCH (05:29)
[2020-07-18 07:41] LABS: Hemoglobin 18.2 g/dL (12.9-16.9); Mean Corpuscular HGB Conc 31.3 g/dL (31.6-35.5); Mean Corpuscular Hemoglobin 29.8 pg (28.0-33.3); Mean Corpuscular Volume 95.4 fL (83.0-100.0); Mean Platelet Volume 11.5 fL (9.4-12.4); Platelet Count 141 K/mcL (140-400); Red Cell Distribution Width 13.8 % (11.5-14.5)
[2020-07-18 07:47] LABS: Hematocrit 58.2 % (37.5-50.1); White Blood Count 6.9 K/mcL (4.3-11.1)
[2020-07-18 08:01] LABS: BUN/Creatinine Ratio 27 (6-26); Blood Urea Nitrogen 30 mg/dL (8-23); Calcium 8.8 mg/dL (8.6-10.3); Carbon Dioxide 30 mEq/L (23-29); Chloride 108 mEq/L (98-107); Glucose 101 mg/dL (70-105); Osmolality,Calculated 310 (280-300); Sodium 147 mEq/L (136-145); eGFR For African Americans > 60 (> 60); eGFR For Non-African Americans > 60 (> 60)
[2020-07-18] MEDS: Aspirin 325 MG TABLET PO SCH ×2 (10:00→10:11)
[2020-07-18] MEDS ORDERED: D5% in Water 1,000 ML IVC SCH (11:00)
[2020-07-18] MEDS ORDERED: Acetaminophen 650 MG RECTAL SUPP RC PRN (15:54)
[2020-07-18 16:11] VITALS: BP 119/97
== END 2020-07-18 19:31 | disposition critical access hospital (66) | DRG 56 ==
LOC: EMEROOARM 14:31 → 3BNU 14:31 → 2NENU 07-11 14:43
PROVIDERS: ADMIT Internal Medicine; ATTEND Internal Medicine

== ENCOUNTER 2020-07-19 10:22 | Inpatient (IN) ==
[2020-07-19] MEDS ORDERED: Naloxone 0.4 MG/ML INJ IVP PRN (12:34)
[2020-07-19] MEDS ORDERED: Acetaminophen 325 MG TABLET PO PRN (12:34)
[2020-07-19] MEDS ORDERED: Ondansetron 4 MG/2 ML VIAL IVP PRN (12:34)
[2020-07-19] MEDS ORDERED: Haloperidol Lactate 5 MG/ML VIAL IVP PRN ×2 (12:36→16:42)
[2020-07-19] MEDS ORDERED: Acetaminophen IV 1,000 MG/100 ML BAG IVPB ONE (15:52)
[2020-07-19] MEDS ORDERED: Acetaminophen 650 MG RECTAL SUPP RC PRN (15:53)
[2020-07-19] MEDS: *HR* Metoprolol 5 MG/5 ML VIAL IVP SCH (17:12)
[2020-07-19] MEDS: *HR* LORazepam 2 MG/ML VIAL IVP PRN ×2 (17:15→21:18)
[2020-07-20] MEDS: *HR* Metoprolol 5 MG/5 ML VIAL IVP SCH ×3 (00:01→11:56)
[2020-07-20] MEDS: *HR* LORazepam 2 MG/ML VIAL IVP PRN ×7 (01:18→22:18)
[2020-07-20] MEDS ORDERED: *HR* Enoxaparin 40 MG/0.4 ML SYRINGE SQ SCH (06:00)
[2020-07-20] MEDS ORDERED: Metoprolol XL (24 HR) Succ 25 MG TAB.ER.24H PO SCH (09:00)
[2020-07-20] MEDS ORDERED: *HR* OxyCODONE Immed Rel 5 MG TABLET PO PRN (15:04)
[2020-07-20] MEDS ORDERED: Morphine Sulfate Oral CONC 10 MG/0.5 ML ORAL.SYG SL PRN (15:31)
[2020-07-20] MEDS: Morphine Sulfate Oral CONC 10 MG/0.5 ML ORAL.SYG SL SCH ×2 (16:07→19:58)
[2020-07-20 20:12] VITALS: BP 116/77
[2020-07-21] MEDS: Morphine Sulfate Oral CONC 10 MG/0.5 ML ORAL.SYG SL SCH ×6 (00:08→20:24)
[2020-07-21] MEDS: *HR* LORazepam 2 MG/ML VIAL IVP PRN ×9 (00:15→21:30)
[2020-07-21] MEDS ORDERED: Haloperidol Lactate 5 MG/ML VIAL IVP ONE (04:28)
[2020-07-21] MEDS ORDERED: Morphine Sulfate 2 MG/ML SYRINGE IVP ONE (04:29)
[2020-07-21] MEDS: Morphine Sulfate Oral CONC 10 MG/0.5 ML ORAL.SYG SL PRN ×4 (11:05→21:27)
[2020-07-22] MEDS: Morphine Sulfate Oral CONC 10 MG/0.5 ML ORAL.SYG SL SCH ×2 (00:26→04:28)
[2020-07-22] MEDS: *HR* LORazepam 2 MG/ML VIAL IVP PRN ×2 (00:31→04:30)
[2020-07-22] MEDS: Morphine Sulfate Oral CONC 10 MG/0.5 ML ORAL.SYG SL PRN (02:32)
== END 2020-07-22 06:55 | disposition expired | DRG 871 ==
LOC: 2NENU 11:54 → SUATTDRO 11:54
PROVIDERS: ADMIT Internal Medicine; ATTEND Internal Medicine